=== PATIENT | female | born 2000 | race Caucasian/White ===

== ENCOUNTER 2021-03-26 09:34 | Emergency (ER) | payer SELFPAY ==
[2021-03-26 10:45] LABS: Urine Blood Trace-lysed (Negative); Urine Glucose Negative (Negative); Urine Protein Trace (Negative); Urine Specific Gravity 1.025 (1.005-1.030)
[2021-03-26 10:50] LABS: Absolute Lymphocytes (CBC) 1.5 K/uL (0.7-4.9); Basophils % 0.5 % (0-1.3); Hematocrit 35.1 % (36.0-45.0); Lymphocytes % 24.9 % (15.3-44.8); MPV 8.4 fL (7.6-11.3); RBC Red Blood Cell Count 4.26 M/uL (3.86-4.86)
[2021-03-26] MEDS ORDERED: ONDANSETRON 4 MG/2 ML VIAL ONE (11:04)
[2021-03-26] MEDS ORDERED: PANTOPRAZOLE 40 MG INJ ONE (11:04)
[2021-03-26] MEDS ORDERED: NA CHLORIDE 0.9% 1,000 ML ONE (11:05)
[2021-03-26] MEDS ORDERED: WATER FOR INJ,STERILE 10 ML ONE (11:05)
[2021-03-26 11:11] LABS: ALT/SGPT 27 U/L (12-78); AST/SGOT 16 U/L (15-37); Alkaline Phosphatase 75 U/L (45-117); BUN Blood Urea Nitrogen 18 mg/dL (7-18); Bicarbonate 29 mmol/L (21-32); Bilirubin Direct 0.1 mg/dL (0-0.2); Bilirubin Total 0.6 mg/dL (0.2-1.0); Glucose Level 84 mg/dL (74-106); Lipase 28 U/L (73-393); Potassium 3.8 mmol/L (3.5-5.1); Protein, Total 7.5 g/dL (6.4-8.2); Sodium Level 142 mmol/L (136-145)
--- NOTE | 2021-03-26 11:46 | RAD REPORT ---
EXAM DESCRIPTION: CT - Abdomen Pelvis W Contrast - 03/26/2021 11:13 am CLINICAL HISTORY: EPIGASTRIC PAIN COMPARISON: CT ABD PELVIS W CONTRAST dated 05/11/2009 TECHNIQUE: Biphasic, helical CT imaging of the abdomen and pelvis was performed following 100 ml non -ionic IV contrast. No oral contrast was administered. All CT scans are performed using dose optimization technique as appropriate and may include automated exposure control or mA/KV adjustment according to patient size. FINDINGS: No suspicious findings in the lung bases. The liver, pancreas, gallbladder, and biliary tree show no suspicious findings. Spleen is normal size . There are multiple rounded low-density areas scattered throughout the splenic parenchyma up to 13 m m in size. These persist on both arterial and venous phase imaging. The 2008 study is not adequate fo r a definitive comparison. Splenic lesions are nonspecific. These may be areas perfusion differential that can exist in the spleen. Aggressive splenic process is doubtful given the absence of additional significant findings on this study. Delete select Symmetric renal function is seen with no hydronephrosis or suspicious renal mass. No pyelonephritis o r acute parenchymal process. No bladder abnormalities. No adrenal abnormalities. Uterus and ovaries s how no suspicious findings. No dilated bowel loops or bowel wall thickening. Appendectomy clips present. No active GI process alicia ntifiable. No free air, free fluid or inflammatory stranding. No hernia, mass or bulky lymphadenopat hy. No suspicious bony findings. IMPRESSION: Contrast enhanced CT abdomen and pelvis showing no acute or emergent finding. Multiple small low-density areas in a normal size spleen are present and nonspecific. Given the absen ce of any other significant finding, these are likely of no long-term clinical significance. As clinical findings warrant or patient concerns warrant, follow-up ultrasound of the spleen could be performed in 6 months.
--- NOTE | 2021-03-26 12:08 | EDPHYS ---
Physician Documentation [facility] Name: Jacky Lopez Age: 21 yrs Sex: Female : 2000 Arrival Date: 03/26/2021 Time: 09:37 Bed 13 Private MD: ALFONZO Physician Keaton Alvarez HPI: 03/26 10:20 This 21 yrs old Female presents to ER via Ambulatory with complaints of cp Vomiting - blood. 10:20 The patient presents to the emergency department with nausea, that is moderate, cp vomiting, that is intermittent, abdominal pain, of the epigastric area, described as waxing and waning, and does not radiate. Onset: The symptoms/episode began/occurred 1 week(s) ago. Possible causes: unknown. The symptoms are aggravated by food . Associated signs and symptoms: Pertinent positives: anorexia, constipation, dizziness, Pertinent negatives: diarrhea, dysuria, fever. Severity of symptoms: in the emergency department the symptoms are unchanged despite home interventions. Patient reports noticing possible blood in vomitus this morning. Patient reports episodes of vomiting and epigastric pain after eating and drinking times 1 week. 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 - Social history:: Smoking status: Patient reports the use of cigarette tobacco products, Reported history of juuling and/or vaping. ROS: 10:25 Eyes: Negative for injury, pain, redness, and discharge. cp 10:25 Constitutional: Positive for poor PO intake, Negative for body aches, chills, fever, weight loss. 10:25 ENT: Negative for ear pain, sore throat, difficulty swallowing, difficulty handling secretions. 10:25 Cardiovascular: Negative for chest pain, palpitations. 10:25 Respiratory: Negative for cough, shortness of breath, wheezing. 10:25 Abdomen/GI: Positive for abdominal pain, nausea and vomiting, anorexia, Negative for diarrhea, constipation, black/tarry stool, rectal bleeding. 10:25 Back: Negative for pain at rest, pain with movement. 10:25 : Negative for urinary symptoms. 10:25 Neuro: Negative for altered mental status, headache, weakness. 10:25 All other systems are negative. Exam: 10:30 Constitutional: The patient appears in no acute distress, alert, awake, non-toxic, well cp developed, well nourished. 10:30 Head/Face: Normocephalic, atraumatic. cp 10:30 Eyes: Periorbital structures: appear normal, Conjunctiva: normal, no exudate, no injection, Sclera: no appreciated abnormality, Lids and lashes: appear normal, bilaterally. 10:30 ENT: External ear(s): are unremarkable, Nose: is normal, Mouth: Lips: moist, Oral mucosa: moist, Posterior pharynx: Airway: no evidence of obstruction, patent. 10:30 Neck: ROM/movement: is normal, is supple, without pain, no range of motions limitations. 10:30 Chest/axilla: Inspection: normal, Palpation: is normal, no crepitus, no tenderness. 10:30 Cardiovascular: Rate: bradycardic, Rhythm: regular. 10:30 Respiratory: the patient does not display signs of respiratory distress, Respirations: normal, no use of accessory muscles, no retractions, labored breathing, is not present, Breath sounds: are clear throughout, no decreased breath sounds, no stridor, no wheezing. 10:30 Abdomen/GI: Inspection: abdomen appears normal, Bowel sounds: active, all quadrants, Palpation: soft, in all quadrants, moderate abdominal tenderness, in the epigastric area, rebound tenderness, is not appreciated, voluntary guarding, is elicited in the epigastric area. 10:30 Back: pain, is absent, ROM is normal. Vital Signs: 09:52 BP 109 / 64; Pulse 56; Resp 16; Temp 97.4; Pulse Ox 100% on R/A; Weight 78.93 kg; iw Height 5 ft. 0 in. (152.40 cm); 11:00 BP 95 / 45; Pulse 57; Resp 16 S; Pulse Ox 100% on R/A; ca1 12:00 BP 92 / 53; Pulse 58; Resp 18 S; Pulse Ox 100% on R/A; ca1 13:00 BP 94 / 57; Pulse 61; Resp 18 S; Pulse Ox 100% on R/A; ca1 09:52 Body Mass Index 33.98 (78.93 kg, 152.40 cm) iw MDM: 10:10 Patient medically screened. tacho 10:30 Differential diagnosis: Nonspecific abd pain, gastritis, cholecystitis, pancreatitis, cp gastroenteritis, PUD. 12:06 Data reviewed: vital signs, nurses notes, lab test result(s), radiologic studies, CT cp scan. 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 Response to treatment: the patient's symptoms have markedly improved after treatment, VSS. Pain and nausea improved. Patient observed tolerating po fluids. Will discharge to home for continued monitoring. 03/26 10:17 Order name: Basic Metabolic Panel; Complete Time: 11:43 03/26 11:43 Interpretation: Normal except: CL 108. 03/26 10:17 Order name: CBC with Diff; Complete Time: 11:43 03/26 11:43 Interpretation: Normal except: HGB 11.5; HCT 35.1. 03/26 10:17 Order name: Hepatic Function; Complete Time: 11:43 03/26 10:17 Order name: Lipase; Complete Time: 11:43 03/26 10:45 Order name: Urine Dipstick-Ancillary; Complete Time: 11:43 EDLA 03/26 11:51 Interpretation: Normal except: UKET 2+; UBLD Trace-lysed; UPROT Trace. 03/26 10:47 Order name: Urine --Ancillary (enter results) eb 03/26 10:17 Order name: IV Saline Lock; Complete Time: 10:54 cp 03/26 10:29 Order name: CT Abd/Pelvis - IV Contrast Only; Complete Time: 11:48 cp 03/26 11:09 Order name: CREATININE WHOLE BLOOD; Complete Time: 11:43 EDMS 03/26 10:17 Order name: Labs collected and sent; Complete Time: 10:54 cp 03/26 10:17 Order name: NPO; Complete Time: 10:53 cp 03/26 11:49 Order name: PO challenge; Complete Time: 12:24 cp Administered Medications: 10:42 Drug: NS 0.9% 1000 ml Route: IV; Rate: 1000 ml; Site: left forearm; ca1 12:00 Follow up: Response: No adverse reaction; IV Status: Completed infusion; IV Intake: ca1 1000ml 10:44 Drug: ProTONIX (pantoprazole) 40 mg Route: IVP; Site: left antecubital; ca1 12:00 Follow up: Response: No adverse reaction ca1 10:46 Drug: Zofran (Ondansetron) 4 mg Route: IVP; Site: left antecubital; ca1 12:00 Follow up: Response: No adverse reaction ca1 Disposition: 03/26/21 12:07 Discharged to Home. Impression: Epigastric pain, Nausea and vomiting. - Condition is Stable. - Discharge Instructions: Gastroesophageal Reflux Disease, Adult, Peptic Ulcer, Food Choices for Peptic Ulcer Disease. - Prescriptions for Protonix 40 mg Oral Tablet - take 1 tablet by ORAL route once daily; 30 tablet. Zofran 4 mg Oral Tablet - take 1 tablet by ORAL route every 12 hours As needed; 20 tablet. - Medication Reconciliation Form, Thank You Letter, Antibiotic Education, Prescription Opioid Use, Work release form form. - Follow up: Rciardo Lua MD; When: 2 - 3 days; Reason: Worsening of condition. - Problem is new. - Symptoms have improved. Signatures: Dispatcher [employer] EDKeaton Hirsch MD MD cha Williams, Irene, RN RN iw Page, Corey, PA PA cp Acob, Cheryl, RN RN ca1 Corrections: (The following items were deleted from the chart) 10:33 10:18 Abdomen Limited+[id number] ordered. [facility] EDLA 13:01 12:07 03/26/2021 12:07 Discharged to Home. Impression: Epigastric pain; Nausea and ca1 vomiting. Condition is Stable. Forms are Medication Reconciliation Form, Thank You Letter, Antibiotic Education, Prescription Opioid Use. Follow up: Ricardo Lua; When: 2 - 3 days; Reason: Worsening of condition. Problem is new. Symptoms have improved. cp
--- NOTE | 2021-03-26 12:08 | ER ---
Nurse's Notes [facility] Name: Jacky Lopez Age: 21 yrs Sex: Female : 2000 Arrival Date: 03/26/2021 Time: 09:37 Bed 13 Private MD: Diagnosis: Epigastric pain;Nausea and vomiting Presentation: 03/26 09:52 Chief complaint: Patient states: over past week has been dizzy and nauseous, vomits iw after she eats, not having a BM as frequently, this morning her vomit was red and yellow , no fever. Coronavirus screen: Client presents with at least one sign or symptom that may indicate coronavirus-19. Ebola Screen: Patient negative for fever greater than or equal to 101.5 degrees Fahrenheit, and additional compatible Ebola Virus Disease symptoms Patient denies exposure to infectious person. Patient denies travel to an Ebola-affected area in the 21 days before illness onset. No symptoms or risks identified at this time. Initial Sepsis Screen: Does the patient meet any 2 criteria? No. Patient's initial sepsis screen is negative. Does the patient have a suspected source of infection? No. Patient's initial sepsis screen is negative. Risk Assessment: Do you want to hurt yourself or someone else? Patient reports no desire to harm self or others. Onset of symptoms was March 19, 2021. 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 - Social history:: Smoking status: Patient reports the use of cigarette tobacco products, Reported history of juuling and/or vaping. Screenin:10 Abuse screen: Denies threats or abuse. Denies injuries from another. Nutritional ca1 screening: No deficits noted. Tuberculosis screening: No symptoms or risk factors identified. Fall Risk IV access (20 points). Assessment: 10:10 General: Appears in no apparent distress. comfortable, Behavior is calm, cooperative, ca1 appropriate for age. Pain: Denies pain. Neuro: Level of Consciousness is awake, alert, obeys commands, Oriented to person, place, time, situation, Appropriate for age. Cardiovascular: Heart tones S1 S2 present Capillary refill < 3 seconds Patient's skin is warm and dry. Rhythm is regular. Respiratory: Airway is patent Respiratory effort is even, unlabored, Respiratory pattern is regular, symmetrical, Breath sounds are clear bilaterally. GI: Abdomen is round non-distended, Bowel sounds present X 4 quads. Abd is soft and non tender X 4 quads. 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 : No signs and/or symptoms were reported regarding the genitourinary system. EENT: No signs and/or symptoms were reported regarding the EENT system. Derm: Skin is intact, is healthy with good turgor, Skin is pink, warm \T\ dry. Musculoskeletal: Circulation, motion, and sensation intact. Capillary refill < 3 seconds. 11:15 Reassessment: Patient appears in no apparent distress at this time. Patient and/or ca1 family updated on plan of care and expected duration. Pain level reassessed. Patient is alert, oriented x 3, equal unlabored respirations, skin warm/dry/pink. 12:00 Reassessment: Patient appears in no apparent distress at this time. Patient and/or ca1 family updated on plan of care and expected duration. Pain level reassessed. Patient is alert, oriented x 3, equal unlabored respirations, skin warm/dry/pink. 12:58 Reassessment: Patient appears in no apparent distress at this time. Patient and/or ca1 family updated on plan of care and expected duration. Pain level reassessed. Patient is alert, oriented x 3, equal unlabored respirations, skin warm/dry/pink. Patient states feeling better. General: Appears. Vital Signs: 09:52 BP 109 / 64; Pulse 56; Resp 16; Temp 97.4; Pulse Ox 100% on R/A; Weight 78.93 kg; iw Height 5 ft. 0 in. (152.40 cm); 11:00 BP 95 / 45; Pulse 57; Resp 16 S; Pulse Ox 100% on R/A; ca1 12:00 BP 92 / 53; Pulse 58; Resp 18 S; Pulse Ox 100% on R/A; ca1 13:00 BP 94 / 57; Pulse 61; Resp 18 S; Pulse Ox 100% on R/A; ca1 09:52 Body Mass Index 33.98 (78.93 kg, 152.40 cm) iw ED Course: 09:37 Patient arrived in ED. as 09:54 Triage completed. iw 09:56 Arm band placed on. iw 10:05 Keaton Ramirez PA is PHCP. cp 10:05 Keaton Alvarez MD is Attending Physician. cp 10:08 Vernell Soto, STANTON is Primary Nurse. ca1 10:10 Patient has correct armband on for positive identification. Placed in gown. Bed in low ca1 position. Call light in reach. Side rails up X2. Pulse ox on. NIBP on. Warm blanket given. 10:40 Initial lab(s) drawn, by me, sent to lab. Inserted saline lock: 22 gauge in left ca1 forearm, using aseptic technique. Blood collected. 11:13 CT Abd/Pelvis - IV Contrast Only In Process Unspecified. EDMS 12:07 Ricardo Lua MD is Referral Physician. cp 13:00 No provider procedures requiring assistance completed. IV discontinued, intact, ca1 bleeding controlled, No redness/swelling at site. Pressure dressing applied. Administered Medications: 10:42 Drug: NS 0.9% 1000 ml Route: IV; Rate: 1000 ml; Site: left forearm; ca1 12:00 Follow up: Response: No adverse reaction; IV Status: Completed infusion; IV Intake: ca1 1000ml 10:44 Drug: ProTONIX (pantoprazole) 40 mg Route: IVP; Site: left antecubital; ca1 12:00 Follow up: Response: No adverse reaction ca1 10:46 Drug: Zofran (Ondansetron) 4 mg Route: IVP; Site: left antecubital; ca1 12:00 Follow up: Response: No adverse reaction ca1 Intake: 12:00 IV: 1000ml; Total: 1000ml. ca1 Outcome: 12:07 Discharge ordered by . cp 13:00 Discharged to home ambulatory, with friend. ca1 13:00 Condition: stable 13:00 Discharge instructions given to patient, Instructed on discharge instructions, follow up and referral plans. medication usage, Demonstrated understanding of instructions, follow-up care, medications, Prescriptions given X 2. 13:01 Patient left the ED. ca1 Signatures: Dispatcher [employer] Ina Dobbins Irene, RN RN iw Keaton Ramirez PA PA cp Acob, Cheryl RN RN ca1
[2021-03-26 13:19] VITALS: TEMP 97.4; O2SAT 100
[2021-03-26 13:24] VITALS: BP 94/57
== END 2021-03-26 13:01 | disposition home or self-care (01) ==
LOC: ER 09:34
DX: R10.13 Epigastric pain (principal); F41.8 Other specified anxiety disorders; F17.210 Nicotine dependence, cigarettes, uncomplicated
CPT/HCPCS: 36415; 74177; 80048; 80076; 81003; 82565; 83690; 85025; 96361; 96374; 96375; 99284; C9113; J2405; J7030; Q9967

== ENCOUNTER 2022-03-04 21:42 | Emergency (ER) | payer SELFPAY ==
[2022-03-04] MEDS ORDERED: PROMETHAZINE INJ 25 MG/ML AMP ONE (22:37)
[2022-03-04 22:53] LABS: Urine Blood Trace-intact (Negative); Urine Glucose Negative (Negative); Urine Protein Negative (Negative); Urine Specific Gravity >=1.030 (1.005-1.030); Urine pH 5.5 (5.0-7.0)
[2022-03-04 22:55] LABS: Absolute Lymphocytes (CBC) 1.5 K/uL (0.7-4.9); Hematocrit 33.8 % (36.0-45.0); Lymphocytes % 30.5 % (15.3-44.8); MPV 8.3 fL (7.6-11.3); RBC Red Blood Cell Count 4.17 M/uL (3.86-4.86)
[2022-03-04 23:25] LABS: Urine Bacteria 20-50 /HPF (<20); Urine Mucus 1+ /HPF (NONE SEEN); Urine RBC <5 /HPF (NONE SEEN)
[2022-03-05 00:16] LABS: Albumin 3.5 g/dL (3.4-5.0); Bilirubin Total 0.3 mg/dL (0.2-1.0); Potassium 3.6 mmol/L (3.5-5.1); Protein, Total 7.3 g/dL (6.4-8.2)
--- NOTE | 2022-03-05 01:57 | EDPHYS ---
Physician Documentation [facility] Name: Jacky Lopez Age: 21 yrs Sex: Female : 2000 Arrival Date: 03/04/2022 Time: 21:43 Bed 20 Private MD: ED Physician Chivo Cleveland HPI: 03/05 01:56 This 21 yrs old Female presents to ER via Ambulatory with complaints of Nausea/Vomiting.ms3 01:56 The patient presents to the emergency department with nausea, vomiting. Onset: The ms3 symptoms/episode began/occurred 2 week(s) ago. Possible causes: unknown. The symptoms are aggravated by nothing. The symptoms are alleviated by nothing. Associated signs and symptoms: Pertinent positives: abdominal pain, vomiting, Pertinent negatives: fever. Severity of symptoms: At their worst the symptoms were mild in the emergency department the symptoms are unchanged. 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 - Social history:: Smoking status: unknown. ROS: 03/05 01:56 Constitutional: Negative for fever, and chills. Neck: Negative for injury, pain, and ms3 swelling, Cardiovascular: Negative for chest pain, and palpitations. Respiratory: Negative for shortness of breath, cough, wheezing, and pleuritic chest pain. MS/Extremity: Negative for injury and deformity, Skin: Negative for injury, rash, and discoloration. Abdomen/GI: Positive for abdominal pain, nausea and vomiting. All other systems are negative. Exam: 01:56 Constitutional: This is a well developed, well nourished patient who is awake, alert, ms3 and in no acute distress. Eyes: Pupils equal round and reactive to light, extra-ocular motions intact. Lids and lashes normal. Conjunctiva and sclera are non-icteric and not injected. Periorbital areas with no swelling, redness, or edema. Neck: Trachea midline, no cervical lymphadenopathy. Supple, full range of motion without nuchal rigidity, or vertebral point tenderness. No Meningismus. Chest/axilla: Normal chest wall appearance and motion. Nontender with no deformity. Cardiovascular: Regular rate and rhythm with a normal S1 and S2. No gallops, murmurs, or rubs. Normal PMI, no JVD. No pulse deficits. Respiratory: Lungs have equal breath sounds bilaterally, clear to auscultation and percussion. No rales, rhonchi or wheezes noted. No increased work of breathing, no retractions or nasal flaring. Abdomen/GI: Soft, non-tender, with normal bowel sounds. No distension or tympany. No guarding or rebound. No evidence of tenderness throughout. Back: No spinal tenderness. No costovertebral tenderness. Full range of motion. Skin: Warm, dry with normal turgor. Normal color with no rashes, no lesions, and no evidence of cellulitis. MS/ Extremity: Pulses equal, no cyanosis. Neurovascular intact. Full, normal range of motion. Psych: Awake, alert, with orientation to person, place and time. Behavior, mood, and affect are within normal limits. Vital Signs: 00:16 BP 100 / 70; Pulse 68; Resp 16; Temp 99.0(O); Pulse Ox 100% ; Weight 76.66 kg; Height 5 ag7 ft. (152.40 cm); Pain 5/10; 00:16 Body Mass Index 33.01 (76.66 kg, 152.40 cm) ag7 MDM: 03/04 22:21 Patient medically screened. ms3 03/05 01:56 Differential diagnosis: Nonspecific abd pain, gastritis, pancreatitis, viral ms3 gastroenteritis, gastroenteritis. Data reviewed: vital signs, nurses notes, lab test result(s), and as a result, I will discharge patient. Counseling: I had a detailed discussion with the patient and/or guardian regarding: the historical points, exam findings, and any diagnostic results supporting the discharge/admit diagnosis, lab results, to return to the emergency department if symptoms worsen or persist or if there are any questions or concerns that arise at home. ED course: Discussed labs, physical exam findings with patient. Patient to follow-up with primary care physician in 2 to 3 days. Patient understands and agrees with plan. All questions were answered. Return precautions discussed include worsening symptoms, or any other concerns. On reevaluation patient is alert and oriented x4, in no apparent distress, nontoxic-appearing, speaking full sentences, ambulatory in emergency department.. 03/04 22:00 Order name: CBC with Diff; Complete Time: 23:46 ms3 03/04 22:00 Order name: CMP; Complete Time: 00:56 ms3 03/04 22:00 Order name: Lipase; Complete Time: 00:56 ms3 03/04 22:00 Order name: Urine Microscopic Only; Complete Time: 23:46 ms3 03/04 22:53 Order name: Urine Dipstick-Ancillary; Complete Time: 23:46 EDMS 03/04 22:00 Order name: IV Saline Lock; Complete Time: 23:55 ms3 03/04 22:00 Order name: Labs collected and sent; Complete Time: 22:45 ms3 03/04 22:00 Order name: Urine Dipstick-Ancillary (obtain specimen); Complete Time: 22:54 ms3 03/04 22:00 Order name: Urine Test (obtain specimen); Complete Time: 22:54 ms3 03/04 23:27 Order name: Urine Culture EDMS 03/05 01:49 Order name: Urine --Ancillary (enter results) bb Administered Medications: 03/04 22:45 Drug: Phenergan (promethazine) 25 mg Route: IM; Site: Ventrogluteal RIGHT; ag7 23:15 Follow up: Response: No adverse reaction ag7 Disposition Summary: 03/05/22 01:56 Discharge Ordered Location: Home ms3 Condition: Stable ms3 Diagnosis - Nausea with vomiting, unspecified ms3 - Abdominal pain, Generalized ms3 Followup: ms3 - With: Guero Lutz DO - When: 2 - 3 days - Reason: Re-evaluation by your physician Discharge Instructions: - Discharge Summary Sheet ms3 - Abdominal Pain, Adult ms3 - Nausea and Vomiting, Adult ms3 Forms: - Medication Reconciliation Form ms3 - Thank You Letter ms3 - Antibiotic Education ms3 - Prescription Opioid Use ms3 Signatures: Dispatcher [employer] EDMS Chivo Cleveland DO DO ms3 Juliet Salazar RN RN kd3 Maggi Ann PA PA sb3 Soni Beverly RN RN ag7
--- NOTE | 2022-03-05 01:57 | ER ---
Nurse's Notes [facility] Name: Jacky Lopez Age: 21 yrs Sex: Female : 2000 Arrival Date: 03/04/2022 Time: 21:43 Bed 20 Private MD: Diagnosis: Nausea with vomiting, unspecified;Abdominal pain, Generalized Presentation: 03/04 21:51 Chief complaint: Patient states: I have been having nausea and vomiting for the past kd3 couple of weeks. I thought maybe I was so I took a test and it was negative. i also have esophageal reflux disease and my vomit has been red so i am worried that there is blood in it. Coronavirus screen: Vaccine status: Patient reports receiving the 1st dose of the Covid vaccine. Date December 2021. Ebola Screen: No symptoms or risks identified at this time. Initial Sepsis Screen: Does the patient meet any 2 criteria? No. Patient's initial sepsis screen is negative. Does the patient have a suspected source of infection? No. Patient's initial sepsis screen is negative. Risk Assessment: Do you want to hurt yourself or someone else? Patient reports no desire to harm self or others. Onset of symptoms was February 20, 2022. 21:51 Method Of Arrival: Ambulatory kd3 21:51 Acuity: GENE 3 kd3 Triage Assessment: 21:54 General: Appears in no apparent distress. Behavior is calm, cooperative. Pain: Denies kd3 pain. GI: Reports vomiting. 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 - Social history:: Smoking status: unknown. Screenin/05 00:12 Abuse screen: Denies threats or abuse. Nutritional screening: No deficits noted. ag7 Tuberculosis screening: No symptoms or risk factors identified. Fall Risk None identified. Assessment: 03/04 23:15 General: Appears in no apparent distress. Behavior is calm, cooperative, appropriate ag7 for age. Pain: Complains of pain in abdomen Pain currently is 7 out of 10 on a pain scale. Quality of pain is described as aching, crampy, Pain began suddenly, Is continuous, Alleviated by nothing. Neuro: Level of Consciousness is awake, alert, obeys commands, Oriented to Appropriate for age. Cardiovascular: Patient's skin is warm and dry. Respiratory: Airway is patent Trachea midline Respiratory effort is even, unlabored, Respiratory pattern is regular, symmetrical. GI: Abdomen is round non-distended, Last BM was March 04, 2022. Reports epigastric pain, nausea, vomiting. 03/05 00:15 Reassessment: No changes from previously documented assessment. ag7 01:00 Reassessment: Patient and/or family updated on plan of care and expected duration. Pain ag7 level reassessed. Patient is alert, oriented x 3, equal unlabored respirations, skin warm/dry/pink. Patient states feeling better. Patient states symptoms have improved. 02:00 Reassessment: Patient and/or family updated on plan of care and expected duration. Pain ag7 level reassessed. Patient is alert, oriented x 3, equal unlabored respirations, skin warm/dry/pink. Patient denies pain at this time. Patient states feeling better. Patient states symptoms have improved. Vital Signs: 00:16 BP 100 / 70; Pulse 68; Resp 16; Temp 99.0(O); Pulse Ox 100% ; Weight 76.66 kg; Height 5 ag7 ft. (152.40 cm); Pain 5/10; 00:16 Body Mass Index 33.01 (76.66 kg, 152.40 cm) ag7 ED Course: 03/04 21:43 Patient arrived in ED. jj6 21:51 Chivo Cleveland DO is Attending Physician. ms3 21:54 Triage completed. kd3 21:54 Arm band placed on right wrist. kd3 22:06 Soni Beverly, RN is Primary Nurse. ag7 22:45 Lipase Sent. ag7 22:45 CMP Sent. ag7 22:45 CBC with Diff Sent. ag7 23:54 Lab(s) recollected, by me, sent to lab. Inserted saline lock: 22 gauge in right wrist, jw7 using aseptic technique. Blood collected. 23:55 Warm blanket given. jw7 23:55 CMP Sent. jw7 23:55 Lipase Sent. jw7 03/05 00:13 Patient has correct armband on for positive identification. Bed in low position. Call ag7 light in reach. Side rails up X 1. Adult w/ patient. 01:55 Guero Lutz DO is Referral Physician. ms3 02:13 No provider procedures requiring assistance completed. IV discontinued, intact, ag7 bleeding controlled, No redness/swelling at site. Pressure dressing applied. Administered Medications: 03/04 22:45 Drug: Phenergan (promethazine) 25 mg Route: IM; Site: Ventrogluteal RIGHT; ag7 23:15 Follow up: Response: No adverse reaction ag7 Medication: 03/05 00:13 VIS not applicable for this client. ag7 Outcome: 01:56 Discharge ordered by . ms3 02:14 Discharged to home ambulatory. ag7 02:14 Condition: stable 02:14 Discharge instructions given to patient, Instructed on discharge instructions, follow up and referral plans. Demonstrated understanding of instructions, follow-up care. 02:14 Patient left the ED. ag7 Signatures: Chivo Cleveland DO DO ms3 Ilene Lovell jj6 Juliet Salazar, RN RN kd3 Berenice Hernández jw7 Soni Bveerly, RN RN ag7
[2022-03-05 02:22] VITALS: BP 100/70; TEMP 99; O2SAT 100
== END 2022-03-05 02:14 | disposition home or self-care (01) ==
LOC: ER 21:42
DX: R11.2 Nausea with vomiting, unspecified (principal); R10.84 Generalized abdominal pain; Z91.040 Latex allergy status; F41.8 Other specified anxiety disorders
CPT/HCPCS: 36415; 80053; 81003; 81015; 81025; 83690; 85025; 87086; 87088; 96372; 99283; J2550

== ENCOUNTER 2022-11-29 08:34 | Emergency (ER) | payer SELFPAY ==
--- OUTSIDE RECORDS SUMMARY | 2022-11-29 08:39 | XMS REPORT | Continuity of Care Document ---
:2000 Author Organization [facility] t Address [address] [facility]. [address] [place] [address] Care Team Providers Name Role Phone Unavailable Unavailable Unavailable Problems This patient has no known problems. Allergies, Adverse Reactions, Alerts This patient has no known allergies or adverse reactions. Medications This patient has no known medications. Procedures This patient has no known procedures. Results Test Description Test Time Test Comments Results Result Comments Source H. PYLORI (BREATH) 2022-03-25 12:46:36 Test Item Value Reference Range Interpretation Comme nts H. PYLORI (BREATH) (test code NEGATIVE NEGATIVE UNLESS OTHERWISE INDICATED, ALL = 57711) TESTING PERFORM ED ATCLINICAL PATHOLOGY [employer] [address] [place] [id number] FLIGHT ATTENDANT RAMP: LOPEZ LEMONS M.D. CLIA NUMBER [id number] CAP ACCREDITATION N O. [id number]
[2022-11-29] MEDS ORDERED: KETOROLAC 30 MG/ML INJ ONE (08:57)
--- NOTE | 2022-11-29 08:58 | EDPHYS ---
Physician Documentation [facility] Name: Jacky Lopez Age: 22 yrs Sex: Female : 2000 Arrival Date: 11/29/2022 Time: 08:38 Bed IW2 Private MD: ED Physician Keaton Alvarez HPI: 11/29 08:48 This 22 yrs old Female presents to ER via Ambulatory with complaints of kb Toothache, Migraine. 08:48 The patient presents with broken tooth/teeth, pain, redness, swelling. The problem is kb located in the lower right first molar (#30). Onset: The symptoms/episode began/occurred 2 day(s) ago. Duration: The symptoms are continuous. Modifying factors: The symptoms are alleviated by nothing, the symptoms are aggravated by nothing. Associated signs and symptoms: Pertinent positives: pain, redness in area, swelling. Severity of symptoms: At their worst the symptoms were moderate, in the emergency department the symptoms are unchanged. The patient has not experienced similar symptoms in the past. The patient has not recently seen a physician. 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 - Social history:: Smoking status: Reported history of juuling and/or vaping. ROS: 08:47 Constitutional: Negative for fever, chills, and weight loss. kb 08:47 ENT: Positive for Teeth pain 08:47 Neuro: Positive for headache. 08:47 All other systems are negative. Exam: 08:47 Constitutional: This is a well developed, well nourished patient who is awake, alert, kb and in no acute distress. Head/Face: Normocephalic, atraumatic. Eyes: Pupils equal round and reactive to light, extra-ocular motions intact. Lids and lashes normal. Conjunctiva and sclera are non-icteric and not injected. Cornea within normal limits. Periorbital areas with no swelling, redness, or edema. Cardiovascular: Regular rate and rhythm with a normal S1 and S2. No gallops, murmurs, or rubs. No pulse deficits. Respiratory: Respirations even and unlabored. No increased work of breathing. Talking in full sentences Abdomen/GI: Soft, non-tender. No distention Skin: Warm, dry with normal turgor. Normal color. MS/ Extremity: Pulses equal, no cyanosis. Neurovascular intact. Full, normal range of motion. Neuro: Awake and alert, GCS 15, oriented to person, place, time, and situation. Moves all extremities. Normal gait. Psych: Awake, alert, with orientation to person, place and time. Behavior, mood, and affect are within normal limits. 08:47 ENT: Dental exam: fractured teeth are noted, specifically the lower right first molar (#30), gum swelling, that is mild, specifically in the lower right first molar (#30), pain. Vital Signs: 08:45 BP 110 / 86; Pulse 61; Resp 16; Temp 97.9; Pulse Ox 98% ; Weight 75.3 kg; Height 5 ft. jh5 0 in. (152.40 cm); Pain 7/10; 08:45 Body Mass Index 32.42 (75.30 kg, 152.40 cm) [facility] MDM: 08:41 Patient medically screened. kb 08:48 Differential diagnosis: dental caries, dental abscess. Data reviewed: vital signs, kb nurses notes. Counseling: I had a detailed discussion with the patient and/or guardian regarding: the historical points, exam findings, and any diagnostic results supporting the discharge/admit diagnosis, the need for outpatient follow up, a dentist, to return to the emergency department if symptoms worsen or persist or if there are any questions or concerns that arise at home. 08:50 ED course: Patient is a 22-year-old female who reports she broke her tooth a year ago kb and has had intermittent pain since then. Reports this pain started 2 days ago with an associated migraine. Reports swelling to the gums that is new this time. On exam patient has a fractured tooth #30 with surrounding gum swelling and mild erythema. Patient educated on need for antibiotics and follow-up with dentist. Patient reports she does not have insurance to see a dentist. Educated on dental schools in the surrounding area verbal understanding received.. . 09:46 Care significantly affected by the following Social Determinants of Health: Poor access kb to healthcare and/or lack of insurance. Administered Medications: 08:53 Drug: Ketorolac 30 mg Route: IM; Site: right deltoid; 5 Disposition Summary: 03/01/23 08:58 Discharge Ordered Location: Home kb Condition: Stable kb Diagnosis - Other specified disorders of teeth and supporting structures kb - Migraine without aura, not intractable kb Followup: kb - With: Emergency Department - When: As needed - Reason: Worsening of condition Followup: kb - With: Private Physician - When: 2 - 3 days - Reason: Recheck today's complaints, Continuance of care, Re-evaluation by your physician Discharge Instructions: - Discharge Summary Sheet kb - Dental Pain, [id number] kb - Migraine Headache, [id number] kb - Dental Abscess, [id number] kb Forms: - Medication Reconciliation Form kb - Thank You Letter kb - Antibiotic Education kb - Prescription Opioid Use kb Prescriptions: - Augmentin 875-125 mg Oral Tablet - take 1 tablet by ORAL route every 12 hours for 10 days; 20 tablet; Refills: 0, kb Product Selection Permitted - Diclofenac Sodium 75 mg Oral tablet,delayed release (DR/EC) - take 1 tablet by ORAL route 2 times per day As needed; 30 tablet; Refills: 0, kb Product Selection Permitted Signatures: Rachel Kitchen, VALLEZ FILTER OPERATOR-C VALLEZ FILTER OPERATOR-Yolanda Rodriguez, RN RN jh5
--- NOTE | 2022-11-29 08:58 | ER ---
Nurse's Notes [facility] Name: Jacky Lopez Age: 22 yrs Sex: Female : 2000 Arrival Date: 11/29/2022 Time: 08:38 Bed IW2 Private MD: Diagnosis: Other specified disorders of teeth and supporting structures;Migraine without aura, not intractable Presentation: 11/29 08:45 Chief complaint: Patient states: migraine x2 days; tooth pain since yesterday. Been [facility] going on for a year, it comes and goes where my teeth get swollen and painful from broken teeth i have. Coronavirus screen: Vaccine status: Patient reports receiving the 2nd dose of the covid vaccine. Client denies travel out of the [place] in the last 14 days. Ebola Screen: Patient negative for fever greater than or equal to 101.5 degrees Fahrenheit, and additional compatible Ebola Virus Disease symptoms Patient denies exposure to infectious person. Patient denies travel to an Ebola-affected area in the 21 days before illness onset. Initial Sepsis Screen: Does the patient meet any 2 criteria? No. Patient's initial sepsis screen is negative. Does the patient have a suspected source of infection? No. Patient's initial sepsis screen is negative. Risk Assessment: Do you want to hurt yourself or someone else? Patient reports no desire to harm self or others. 08:45 Method Of Arrival: Ambulatory [facility] 08:45 Acuity: GENE 3 5 Triage Assessment: 08:47 General: Appears in no apparent distress. uncomfortable, obese, Behavior is calm, 5 cooperative, appropriate for age. Pain: Complains of pain in teeth. EENT: Reports pain in right jaw. 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 - Social history:: Smoking status: Reported history of juuling and/or vaping. Vital Signs: 08:45 BP 110 / 86; Pulse 61; Resp 16; Temp 97.9; Pulse Ox 98% ; Weight 75.3 kg; Height 5 ft. [facility] 0 in. (152.40 cm); Pain 7/10; 08:45 Body Mass Index 32.42 (75.30 kg, 152.40 cm) [facility] ED Course: 08:38 Patient arrived in ED. rg4 08:40 Rachel Kitchen FNP-C [facility] kb 08:40 Keaton Alvarez MD is Attending Physician. kb 08:47 Triage completed. [facility] 08:47 Arm band placed on right wrist. 5 Administered Medications: 08:53 Drug: Ketorolac 30 mg Route: IM; Site: right deltoid; [facility] Outcome: 08:58 Discharge ordered by . kb 09:04 Discharged to home ambulatory. [facility] 09:04 Condition: good 09:04 Discharge instructions given to patient, Instructed on discharge instructions, follow up and referral plans. medication usage, safety practices, Demonstrated understanding of instructions, follow-up care, medications, Prescriptions given X 2. 09:04 Patient left the ED. [facility] Signatures: Rahcel Kitchen FNP-C FNP-Ckb Garcia, Rubi rg4 Yolanda Torres, RN RN [facility]
[2022-11-29 09:09] VITALS: BP 110/86; TEMP 97.9; O2SAT 98
== END 2022-11-29 09:04 | disposition home or self-care (01) ==
LOC: ER 08:34
DX: G43.009 Migraine without aura, not intractable, without status migrainosus (principal); K08.89 Other specified disorders of teeth and supporting structures

== ENCOUNTER 2024-06-15 11:38 | Emergency (ER) | payer SELFPAY ==
--- OUTSIDE RECORDS SUMMARY | 2024-06-15 11:41 | XMS REPORT | Continuity of Care Document ---
Author Name Unknown Address [address] [facility] [address] [place] [address] [facility] Address [address] [facility] [place] [address] Care Team Providers Care Gas Brazer Name Role Phone Pcp, Patient Does Not Have A Primary Care Physic cassia MARINE AVERY Attending Clinician Unavailable Marine Avery MD Attending Clinician [phone] Allergies, Adverse Reactions, Alerts Allergy Name Allergy Type Status Severity Reaction(s) Onset Date Inactive Date Treating Clinician Comments Source NO KNOWN ALLERGIE S Drug Class Active [facility] Social History Social Habit Start Date Stop Date Quantity Comments Source Sexual orientation U [facility] Sex Assigned At 2000 00:00:00 2000 00:00:00 [facility] Smoking Status Start Date Stop Date Source Tobacco smoking consumption unknown [facility] Medications Ordered Medication Name Filled Medication Name Start Date Stop Date Current Medication? Ordering Clinician Indication Dosage Frequency Signature (SIG) Comments Components Source ketorolac 10 mg tablet 12-05 00:00: 00 Yes [id number] 10mg Take 1 tablet by mouth every 6 (six) hours as needed for Pain (scale 1-3). [facility] Vital Signs Vital Name Observation Time Observation Value Comments Jd caesar Systolic blood pressure 2023-12-06 19:36:00 113 mm[Hg] [facility] Diastolic blood pressure 2023-12-06 19:36:00 85 mm[Hg] [facility] Heart rate 2023-12-06 19:36:00 103 /min [facility] Body temperature 2023-12-06 19:36:00 37.11 Susan [facility] Respiratory rate 2023-12-06 19:36:00 22 /min [facility] Body height 2023-12-06 19:36:00 152.4 cm [facility] Body weight 2023-12-06 19:36:00 83.598 kg [facility] BMI 2023-12-06 19:36:00 35.99 kg/m2 [facility] Oxygen saturation in Arterial blood by Pulse oximetry 2023-12-06 19:36:00 100 /min [place] [facility] Procedures Procedure Date / Time Performed Performing Clinicia n Source NOTICE OF PRIVACY PRACTICES 2023-12-06 20:07:51 Doctor Unassigned, [place] [facility] CONSENT/REFUSAL FOR DIAGNOSIS AND TREATMENT 2023-12-06 20:07:19 Doctor Unassigned, [place] [facility] ASSIGNMENT OF BENEFITS 2023-12-06 19:46:59 Docto r Unassigned, [place] [facility] NOTICE OF PRIVACY PRACTICES 2023-12-06 19:29:37 Doctor Unassigned, [place] [facility] NOTICE OF PRIVACY PRACTICES 2023-12-06 19:28:28 Doctor Unassigned, [place] [facility] Encounters Start Date/Time End Date/Time Encounter Type Admission Type Attending Clinicians Care Facility Care Department Encounter ID Source 2023-12-06 13:39:00 2023-12-06 14:15:00 Emergency X MARINE AVERY [facility] ERT [id number] [facility] 2023-12-06 13:39:00 2023-12-06 14:15:00 Emergency Marine Avery T [facility] [id number] [facility] Results Test Description Test Time Test Comments Results Result Co mments Source Notes Date/Time Note Provider Source 2023-12-06 13:53:07 Pt given printed and verbal discharge instructions regarding Lipoma, encouraged hydration, 1 Prescriptions provided Discussed ibuprofen and to take with food to avoid GI distress. Pt verbalized understanding of instructions, pt awake alert oriented, resp reg unlabored, skin w/d, color appropriate for race, moves all ext well,pt encouraged to follow up with pcp and or General Surgery Advised to seek medical attention for new/prolonged/worsening of symptoms, No adverse reaction to meds given in ER noted upon discharge Awake, alert oriented, resp reg unlabored, skin w/d, pt leaving amb with steady gait, in no apparent distress, [facility] 2023-12-06 13:36:08 Patient presents with a lump to the left posterior shoulder that is soft and a skin tag on the posterior right knee that has gotten larger. [facility] Gregoria Mauro RN [facility] 2023-12-06 13:26:00 Images from the original note were not included. [facility] Emergency Department Note Patient Name: Bernie Diaz Date of : 1990 33 year old female Treatment Room: Room/bed info not found Primary Care Physician: No primary care provider on file. Patient Escorted by: Family [5] Mode of Arrival: Personal means [1] EMS Treatment Prior to ED Arrival: Travel and Exposure Screening: Symptoms Does patient have any of these symptoms?: (not recorded) Exposure Screening Has patient had contact with someone with a communicable disease in the last month?: (not recorded) Diseases exposed to:: (not recorded) Is Patient ?: (not recorded) Exposure Date: (not recorded) Chief Complaint: No chief complaint on file. History of Present Illness: Pt here for right leg cyst and left shoulder cyst She has had the cyst in left shoulder for years She has had the cyst in the right leg for over a year They periodically cause pain No numbness no tingling no fever no chills Pain is when moved or bumped Rht right leg cyst gets pinched with clothing Left shoulder is pain when bumped Past Medical History/Immunizations: History reviewed. No pertinent past medical history. Allergies: Not on File Past Social History: Substance & Sexual Activity No substance use or sexual activity history on file. Past Surgical History: History reviewed. No pertinent surgical history. Review of Systems: Review of Systems Constitutional: Negative for chills and fatigue. Respiratory: Negative. Musculoskeletal: Positive for myalgias. All other systems reviewed and are negative. Physical Exam: ED Triage Vitals Weight Actual or estimated Height BP Pulse Resp Temp Temp src SpO2 Measured on Physical Exam Vitals reviewed. HENT: Right Ear: External ear normal. Nose: Nose normal. Mouth/Throat: Mouth: Mucous membranes are moist. Eyes: Extraocular Movements: Extraocular movements intact. Pupils: Pupils are equal, round, and reactive to light. Cardiovascular: Rate and Rhythm: Normal rate. Abdominal: General: Abdomen is flat. Palpations: Abdomen is soft. Musculoskeletal: General: No swelling or deformity. Normal range of motion. Arms: Cervical back: Normal range of motion. Legs: Comments: 3-4 cm lipoma palpated above left shoulder A grape sized skin tag is noted without discoloration Skin: General: Skin is warm. Capillary Refill: Capillary refill takes less than 2 seconds. Neurological: General: No focal deficit present. Mental Status: She is alert and oriented to person, place, and time. Radiology: No orders to display Lab Results: Lab Results - No data to display EKG: If EKG completed, see Procedure Note. Orders and Treatments: No orders of the defined types were placed in this encounter. No orders of the defined types were placed in this encounter. First Provider Eval: ED Events Date/Time Event User Comments 12/06/23 1329 Medical Screening Begins MARINE AVREY MD -- 12/06/23 1329 First Provider Evaluation MARINE AVERY MD -- ED COURSE Diagnosis/Impression as of 12/06/23 1338 Skin tag Lipoma of left shoulder Procedures: Procedures MDM: Medical Decision Making Pt here for right leg cyst and left shoulder cyst She has had the cyst in left shoulder for years She has had the cyst in the right leg for over a year They periodically cause pain No numbness no tingling no fever no chills Pain is when moved or bumped Rht right leg cyst gets pinched with clothing Left shoulder is pain when bumped Pt here for a skin tag and a lipoma These should be handled as ouptt and no emergent conditions would benefit from tissue/specimen histopath but ultimately as more than a year in course is not emergency Referral to General surgery placed Ketorlac sent to Pharmacy Risk OTC drugs. Prescription drug management. Flowsheet Documentation: Scoring Tools: No data recorded Disposition/Condition: ED Disposition None Discharge Medications: Patient's Medications No medications on file Follow-up: Electronically signed by: Marine Avery MD 12/06/23 1346 [facility]
[2024-06-15 13:23] LABS: SARS-CoV-2 Antigen CONTROL BLUE LINE VIS/BG OK; SARS-CoV-2 Antigen Rapid Res Negative (Negative)
--- NOTE | 2024-06-15 13:44 | EDPHYS ---
Physician Documentation [facility] Name: Jacky Lopez Age: 24 yrs Sex: Female : 2000 Arrival Date: 06/15/2024 Time: 11:38 Bed 15 Private MD: ED Physician Toño Cardenas HPI: 06/15 12:15 This 24 yrs old Female presents to ER via Ambulatory with complaints of Flu sb4 symptoms. 12:30 malaise, congestion, headache, 1 episode of vomiting since Sunday. daughter is sick sb4 with similar symptoms. no cough, fever, abdominal pain, shortness of breath, chest pain. Historical: - Allergies: 12:06 Latex; hb 12:06 lamotrigine; hb - Home Meds: 12:06 Abilify oral [Active]; Hydroxyzine Oral [Active]; hb - PMHx: 12:06 Anxiety; Depression; hb - PSHx: 12:06 Appendectomy; hb - Immunization history:: Adult Immunizations up to date. - Infectious Disease History:: Denies. - Social history:: Smoking status: Patient denies any tobacco usage or history of. ROS: 12:30 Cardiovascular: Negative for chest pain, palpitations, and edema, sb4 12:30 Constitutional: Positive for chills, malaise, 12:30 ENT: Positive for sinus congestion, 12:30 Abdomen/GI: Positive for nausea and vomiting, 12:30 All other systems are negative, Exam: 12:30 Constitutional: This is a well developed, well nourished patient who is awake, alert, sb4 and in no acute distress. Head/Face: Normocephalic, atraumatic. Eyes: Extra-ocular motions intact. Periorbital areas with no swelling, redness, or edema. ENT: Mucous membranes moist. Cardiovascular: Regular rate and rhythm with a normal S1 and S2. Respiratory: Lungs have equal breath sounds bilaterally, clear to auscultation and percussion. No rales, rhonchi or wheezes noted. No increased work of breathing, no retractions or nasal flaring. Abdomen/GI: Soft, non-tender, no distension. Skin: Warm, dry with normal turgor. Normal color with no rashes, no lesions, and no evidence of cellulitis. Vital Signs: 12:03 BP 115 / 73; Pulse 88; Resp 16; Temp 97.3(TE); Pulse Ox 98% on R/A; Weight 79.83 kg; hb Height 5 ft. 0 in. ; Pain 0/10; 13:26 BP 106 / 77; Pulse 74; Resp 16; Pulse Ox 99% ; ko1 12:03 Body Mass Index 34.37 (79.83 kg, 152.4 cm) hb 12:03 Pain Scale: Adult hb MDM: 11:55 Patient medically screened. sb4 13:48 Data reviewed: vital signs, nurses notes, lab test result(s), and as a result, I will sb4 discharge patient. Counseling: I had a detailed discussion with the patient and/or guardian regarding the historical points, exam findings, and any diagnostic results supporting the discharge/admit diagnosis, lab results, to return to the emergency department if symptoms worsen or persist or if there are any questions or concerns that arise at home. 06/15 12:11 Order name: Strep sb4 06/15 12:11 Order name: SARS RAPID; Complete Time: 13:29 sb4 06/15 12:11 Order name: Flu; Complete Time: 13:29 sb4 06/15 13:25 Order name: Throat Culture EDMS Administered Medications: No medications were administered Disposition: 06/16 07:42 Co-signature as Attending Physician, Toño Cardenas MD I reviewed the patient's care rn provided by the Advanced Practice Provider and agree with the diagnosis and treatment plan. Chart complete. Disposition Summary: 06/15/24 13:43 Discharge Ordered Notes: Location: Home sb4 Problem: new sb4 Symptoms: have improved sb4 Condition: Stable sb4 Diagnosis - Viral infection, unspecified sb4 Followup: sb4 - With: Private Physician - When: As needed - Reason: Recheck today's complaints, Re-evaluation by your physician Discharge Instructions: - Discharge Summary Sheet sb4 - Viral Illness, Adult sb4 Forms: - Patient Portal Instructions sb4 - Leadership Thank You Letter sb4 Signatures: Dispatcher [employer] Toño Powell MD MD rn Baxter, Heather, RN RN hb Brown, Sophia, PA-C PA-C sb4
--- NOTE | 2024-06-15 13:44 | ER ---
Nurse's Notes [facility] Name: Jacky Lopez Age: 24 yrs Sex: Female : 2000 Arrival Date: 06/15/2024 Time: 11:38 Bed 15 Private MD: Diagnosis: Viral infection, unspecified Presentation: 06/15 12:03 Chief complaint: Cough, congestion, nausea, and headache x 3 days. Vomit x 1 yesterday. hb Tolerating fluids. Coronavirus screen: Client presents with at least one sign or symptom that may indicate coronavirus-19. Provider contacted for isolation considerations. Ebola Screen: No symptoms or risks identified at this time. Initial Sepsis Screen: Does the patient meet any 2 criteria? No. Patient's initial sepsis screen is negative. Does the patient have a suspected source of infection? No. Patient's initial sepsis screen is negative. Risk Assessment: Do you want to hurt yourself or someone else? Patient reports no desire to harm self or others. Onset of symptoms was June 12, 2024. 12:03 Method Of Arrival: Ambulatory hb 12:03 Acuity: GENE 4 hb Historical: - Allergies: 12:06 Latex; hb 12:06 lamotrigine; hb - Home Meds: 12:06 Abilify oral [Active]; Hydroxyzine Oral [Active]; hb - PMHx: 12:06 Anxiety; Depression; hb - PSHx: 12:06 Appendectomy; hb - Immunization history:: Adult Immunizations up to date. - Infectious Disease History:: Denies. - Social history:: Smoking status: Patient denies any tobacco usage or history of. Screenin:[address] [facility] ED Fall Risk Assessment (Adult) History of falling in the last 3 months, ko1 including since admission No falls in past 3 months (0 pts) Confusion or Disorientation No (0 pts) Intoxicated or Sedated No (0 pts) Impaired Gait No (0 pts) Mobility Assist Device Used No (0 pt) Altered Elimination No (0 pt) Score/Fall Risk Level 0 - 2 = Low Risk Oriented to surroundings, Maintained a safe environment, Hourly rounding (assess needs \T\ fall precautionary measures) done. Abuse screen: Denies threats or abuse. Denies injuries from another. Nutritional screening: No deficits noted. Tuberculosis screening: No symptoms or risk factors identified. Assessment: 12:27 General: Appears in no apparent distress. Behavior is calm, cooperative, appropriate ko1 for age. Pain: Denies pain. Neuro: No deficits noted. Cardiovascular: Patient's skin is warm and dry. Respiratory: Airway is patent Breath sounds are clear bilaterally. GI: Reports nausea, vomiting. : No deficits noted. EENT: Reports nasal congestion. Derm: No deficits noted. Musculoskeletal: No deficits noted. Vital Signs: 12:03 BP 115 / 73; Pulse 88; Resp 16; Temp 97.3(TE); Pulse Ox 98% on R/A; Weight 79.83 kg; hb Height 5 ft. 0 in. ; Pain 0/10; 13:26 BP 106 / 77; Pulse 74; Resp 16; Pulse Ox 99% ; ko1 12:03 Body Mass Index 34.37 (79.83 kg, 152.4 cm) hb 12:03 Pain Scale: Adult hb ED Course: 11:50 Patient arrived in ED. mg5 11:51 Maggi Ann PA-C is PHCP. sb4 11:51 Toño Cardenas MD is Attending Physician. sb4 12:02 Maria Del Rosario Sewell RN is Primary Nurse. ko1 12:06 Triage completed. hb 12:08 Arm band placed on. hb 12:22 Strep Sent. ko1 12:22 Flu Sent. ko1 12:22 SARS RAPID Sent. ko1 12:24 COVID swab sent to lab. Flu and/or RSV swab sent to lab. Strep swab sent to lab. ko1 12:27 Patient has correct armband on for positive identification. Bed in low position. Call ko1 light in reach. Provided Education on: swabs. Pulse ox on. NIBP on. Door closed. Noise minimized. Lights dimmed. 12:27 No provider procedures requiring assistance completed. Patient did not have IV access ko1 during this emergency room visit. Administered Medications: No medications were administered Medication: 12:27 VIS not applicable for this client. ko1 Outcome: 13:43 Discharge ordered by . sb4 13:50 Discharged to home ambulatory, ko1 13:50 Condition: stable 13:50 Discharge instructions given to patient, Instructed on discharge instructions, follow up and referral plans. Demonstrated understanding of instructions, follow-up care, 13:51 Patient left the ED. ko1 Signatures: Ksenia Smith RN RN hb Maria Del Rosario Sewell, RN RN adalgisa1 Maggi Ann, PAAdarsh PACleveC fadi4 Kiersten Snyder mg5
[2024-06-15 14:02] VITALS: TEMP 97.3
[2024-06-15 14:04] VITALS: BP 106/77; O2SAT 99
== END 2024-06-15 13:51 | disposition home or self-care (01) ==
LOC: ER 11:38
DX: B34.9 Viral infection, unspecified (principal); Z11.52 Encounter for screening for COVID-19
CPT/HCPCS: 36415; 87070; 87081; 87804; 87811; 99283

== ENCOUNTER 2024-10-23 12:27 | Emergency (ER) | payer OTHER, SELFPAY ==
--- OUTSIDE RECORDS SUMMARY | 2024-10-23 12:30 | XMS REPORT | Continuity of Care Document ---
Author Name Unknown Address [address] [place] [address] [facility] thconnect Address [address] [place] [address] Care Team Providers Care Property Portfolio Officer Name Role Phone Pcp, Patient Does Not Have A Primary Care Physic cassia MARINE AVERY Attending Clinician Unavailable Marine Avery MD Attending Clinician [phone] Allergies, Adverse Reactions, Alerts Allergy Name Allergy Type Status Severity Reaction(s) Onset Date Inactive Date Treating Clinician Comments Source NO KNOWN ALLERGIE S Drug Class Active [facility] Social History Social Habit Start Date Stop Date Quantity Comments Source Sexual orientation U [facility] Sex Assigned At 2000 00:00:00 2000 00:00:00 [facility] Smoking Status Start Date Stop Date Source Tobacco smoking consumption unknown [facility] Medications Ordered Medication Name Filled Medication Name Start Date Stop Date Current Medication? Ordering Clinician Indication Dosage Frequency Signature (SIG) Comments Components Source ketorolac 10 mg tablet 12-05 00:00: 00 Yes [id number] 10mg Take 1 tablet by mouth every 6 (six) hours as needed for Pain (scale 1-3). [facility] Vital Signs Vital Name Observation Time Observation Value Comments Jd maynard Systolic blood pressure 2023-12-06 19:36:00 113 mm[Hg] [facility] Diastolic blood pressure 2023-12-06 19:36:00 85 mm[Hg] [facility] Heart rate 2023-12-06 19:36:00 103 /min [facility] Body temperature 2023-12-06 19:36:00 37.11 Susan [facility] Respiratory rate 2023-12-06 19:36:00 22 /min [facility] Body height 2023-12-06 19:36:00 152.4 cm [facility] Body weight 2023-12-06 19:36:00 83.598 kg [facility] BMI 2023-12-06 19:36:00 35.99 kg/m2 [facility] Oxygen saturation in Arterial blood by Pulse oximetry 2023-12-06 19:36:00 100 /min [place] [facility] Procedures Procedure Date / Time Performed Performing Clinicia n Source NOTICE OF PRIVACY PRACTICES 2023-12-06 20:07:51 Doctor Unassigned, [place] [facility] CONSENT/REFUSAL FOR DIAGNOSIS AND TREATMENT 2023-12-06 20:07:19 Doctor Unassigned, [place] [facility] ASSIGNMENT OF BENEFITS 2023-12-06 19:46:59 Docto r Unassigned, [place] [facility] NOTICE OF PRIVACY PRACTICES 2023-12-06 19:29:37 Doctor Unassigned, [place] [facility] NOTICE OF PRIVACY PRACTICES 2023-12-06 19:28:28 Doctor Unassigned, [place] [facility] Encounters Start Date/Time End Date/Time Encounter Type Admission Type Attending [facility] Care Facility Care Department Encounter ID Source 2023-12-06 13:39:00 2023-12-06 14:15:00 Emergency X MARINE AVERY [facility] ERT [id number] [facility] 2023-12-06 13:39:00 2023-12-06 14:15:00 Emergency Marine Avery [facility] [id number] [facility] Results Test Description Test Time Test Comments Results Result Co mments Source
[2024-10-23 14:02] LABS: Absolute Eosinophils 0.2 K/uL (0-0.5); Absolute Lymphocytes (CBC) 2.5 K/uL (0.7-4.9); Absolute Monocytes 0.5 K/uL (0.1-1.3); Basophils % 0.4 % (0-1.3); Eosinophils % 2.4 % (0-4.4); Hematocrit 35.7 % (36.0-45.0); Lymphocytes % 30.7 % (15.3-44.8); MCH 27.1 pg (27.0-35.0); MCHC 33.7 g/dL (32.0-36.0); MCV 80.5 fL (80-100); MPV 7.5 fL (7.6-11.3); Monocytes % 5.7 % (3.3-12.3); Neutrophils % 60.8 % (41.7-73.7); Platelets 262 thou/uL (152-406); RBC Red Blood Cell Count 4.43 M/uL (3.86-4.86); Red Cell Distribution Width 14.2 % (12.1-15.2)
[2024-10-23 14:03] LABS: Specific Gravity 1.028 (1.005-1.030)
[2024-10-23 14:16] LABS: Anion Gap 5.4 mEq/L (5.0-15.0); Potassium 4.4 mEq/L (3.5-5.1)
--- NOTE | 2024-10-23 17:03 | RAD REPORT ---
EXAMINATION: US Transvaginal OB CLINICAL INDICATION: Female 24 years old.[facility] MAIN Abd cramping, ;Vaginal bleeding Bed Name: IW1 TECHNIQUE: Real-time ultrasonography of the pelvis was performed transvaginally. Color and spectral D oppler evaluation of the ovaries was performed. COMPARISON: No prior exam. FINDINGS: UTERUS AND CERVIX: The uterus measures 8.7 cm in length. The uterus is normal. No masses seen The end ometrium is normal, without focal abnormality or residual fluid, measuring 2.5 cm in thickness. RIGHT OVARY: Normal The right ovary measures 2.7 x 1.9 x 2.3 cm. Normal color and spectral Doppler evaluation of the right ovary.. LEFT OVARY: Normal The left ovary measures 2.7 x 1.5 x 2.3 cm. Normal color and spectral Doppler evaluation of the left ovary.. FREE FLUID: No free fluid. IMPRESSION: No evidence of an intrauterine . No focal endometrial abnormalities. No suspicious adnexal abnormality.
--- NOTE | 2024-10-23 17:36 | EDPHYS ---
Physician Documentation [facility] Name: Jacky Lopez Age: 24 yrs Sex: Female : 2000 Arrival Date: 10/23/2024 Time: 12:27 Bed 13 Private MD: ED Physician Macario Rust HPI: 10/23 14:35 This 24 yrs old Female presents to ER via Ambulatory with complaints of cp Vaginal Bleeding - Heavy. 14:35 The patient presents with vaginal bleeding that is with clots, with tissue. Onset: The cp symptoms/episode began/occurred 3 day(s) ago. Associated signs and symptoms: Pertinent positives: lower abdomen pain, Pertinent negatives: fever, vomiting. Severity of symptoms: in the emergency department the symptoms are unchanged, despite home interventions. 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 - Infectious Disease History:: Denies. - Social history:: Smoking status: Patient denies any tobacco usage or history of. ROS: 14:40 Constitutional: Negative for body aches, chills, fever, poor PO intake, cp 14:40 Eyes: Negative for injury, pain, redness, and discharge, cp 14:40 Cardiovascular: Negative for chest pain, 14:40 Respiratory: Negative for cough, shortness of breath, wheezing, 14:40 Abdomen/GI: Positive for abdominal pain, of the right lower quadrant and left lower quadrant, Negative for vomiting, diarrhea, constipation, 14:40 Back: Positive for pain at rest, of the low back area, 14:40 : Positive for vaginal bleeding, 14:40 Neuro: Negative for altered mental status, dizziness, headache, weakness, 14:40 All other systems are negative, Exam: 14:43 Constitutional: The patient appears in no acute distress, alert, awake, non-toxic, well cp developed, well nourished, 14:43 Head/Face: Normocephalic, atraumatic. cp 14:43 Eyes: Periorbital structures: appear normal, Conjunctiva: normal, no exudate, no injection, Sclera: no appreciated abnormality, Lids and lashes: appear normal, bilaterally, 14:43 ENT: External ear(s): are unremarkable, Nose: is normal, Posterior pharynx: Airway: no evidence of obstruction, patent, 14:43 Chest/axilla: Inspection: normal, 14:43 Cardiovascular: Rate: normal, 14:43 Respiratory: the patient does not display signs of respiratory distress, Respirations: normal, no use of accessory muscles, no retractions, labored breathing, is not present, Breath sounds: are clear throughout, no decreased breath sounds, no stridor, no wheezing, 14:43 Abdomen/GI: Inspection: abdomen appears normal, Bowel sounds: active, all quadrants, Palpation: soft, in all quadrants, mild abdominal tenderness, in the right lower quadrant and left lower quadrant, rebound tenderness, is not appreciated, involuntary guarding, is not appreciated, 14:43 Back: pain, that is mild, of the low back area, 14:43 Neuro: Orientation: to person, place \T\ time. Mentation: is normal, Motor: moves all fours, strength is normal, Vital Signs: 12:44 BP 128 / 94; Pulse 82; Resp 18; Temp 97.8(TE); Pulse Ox 100% on R/A; Weight 82.55 kg; ld1 Height 5 ft. 0 in. ; Pain 7/10; 16:05 BP 108 / 66; Pulse 80; Resp 18; Pulse Ox 100% on R/A; db 17:30 BP 101 / 75; Pulse 89; Resp 18; Pulse Ox 99% on R/A; db 12:44 Body Mass Index 35.54 (82.55 kg, 152.4 cm) ld1 12:44 Pain Scale: Adult ld1 MDM: 14:00 Differential diagnosis: ectopic , menometrorrhagia, molar preganancy, ruptured cp ectopic , urinary tract infection. 17:35 Medical Screening Exam initiated cp 17:35 Data reviewed: vital signs, nurses notes, lab test result(s), radiologic studies, cp ultrasound, and as a result, I will discharge patient. 17:35 Counseling: I had a detailed discussion with the patient and/or guardian regarding the cp historical points, exam findings, and any diagnostic results supporting the discharge/admit diagnosis, lab results, radiology results, the need for outpatient follow up, a family practitioner, to return to the emergency department if symptoms worsen or persist or if there are any questions or concerns that arise at home. Special discussion: Based on the patient's Hx, exam, and Dx evaluation, there is no indication for emergent surgery or inpatient Tx. It is understood by the patient/guardian that if the Sx's persist or worsen they need to return immediately for re-evaluation. 10/23 13:07 Order name: Abo/rh Typing; Complete Time: 14:29 ap3 10/23 14:34 Interpretation: Reviewed. cp 10/23 13:07 Order name: Basic Metabolic Panel; Complete Time: 14:29 ap3 10/23 14:34 Interpretation: Normal except: CL 108. cp 10/23 13:07 Order name: CBC with Diff; Complete Time: 14:29 ap3 10/23 14:34 Interpretation: Normal except: HCT 35.7; MPV 7.5. cp 10/23 13:07 Order name: Test, Urine; Complete Time: 14:29 ap3 10/23 14:34 Interpretation: Reviewed. cp 10/23 13:56 Order name: HCG-Quantitative; Complete Time: 15:14 cp 10/23 15:14 Interpretation: Reviewed. cp 10/23 14:34 Order name: US Transvaginal Ob; Complete Time: 17:25 cp 10/23 17:26 Interpretation: Report reviewed. cp 10/23 13:07 Order name: IV Saline Lock; Complete Time: 13:55 ap3 10/23 13:07 Order name: Labs collected and sent; Complete Time: 13:55 ap3 10/23 13:07 Order name: NPO; Complete Time: 13:34 ap3 Administered Medications: No medications were administered Disposition Summary: 10/23/24 17:35 Discharge Ordered Notes: Location: Home cp Problem: new cp Symptoms: have improved cp Condition: Stable cp Diagnosis - Threatened cp Followup: cp - With: Private Physician - When: 48 Hours - Reason: Repeat Beta-HCG (48 Hours) Discharge Instructions: - Discharge Summary Sheet cp - Abdominal Pain During cp - Care cp - Threatened Miscarriage cp - Vaginal Bleeding During , First Trimester cp - First Trimester of cp - Activity Restriction During cp Forms: - Medication Reconciliation Form cp - Antibiotic Education cp - Prescription Opioid Use cp - Patient Portal Instructions cp - Leadership Thank You Letter cp Signatures: Dispatcher [employer] EDMS Keaton Ramirez PA PA cp Prokisch, Amanda, RN RN ap3 Livier Cleveland RN RN ld1 Corrections: (The following items were deleted from the chart) 13: 13:07 ABO/RH TYPING+BB.LAB.BRZ ordered. EDMS EDMS 13: 13:07 BASIC METABOLIC PANEL+C.LAB.BRZ ordered. EDMS EDMS 13: 13:07 CBC+H.LAB.BRZ ordered. EDMS EDMS 13: 13:07 Test, Urine+UC.LAB.BRZ ordered. EDMS EDMS
--- NOTE | 2024-10-23 17:36 | ER ---
Nurse's Notes [facility] Name: Jacky Lopez Age: 24 yrs Sex: Female : 2000 Arrival Date: 10/23/2024 Time: 12:27 Bed 13 Private MD: Diagnosis: Threatened Presentation: 10/23 12:44 Chief complaint: Patient states: C/O heavy bleeding and abdominal pain since Sunday - ld1 passed clot that looked like tissue. Concerned about possible miscarriage. Coronavirus screen: At this time, the client does not indicate any symptoms associated with coronavirus-19. Ebola Screen: No symptoms or risks identified at this time. Initial Sepsis Screen: Does the patient meet any 2 criteria? No. Patient's initial sepsis screen is negative. Does the patient have a suspected source of infection? No. Patient's initial sepsis screen is negative. Risk Assessment: Do you want to hurt yourself or someone else? Patient reports no desire to harm self or others. Onset of symptoms was October 23, 2024 at 12:46. 12:44 Method Of Arrival: Ambulatory ld1 12:44 Acuity: GENE 3 ld1 Triage Assessment: 12:44 General: Appears in no apparent distress. comfortable, Behavior is calm, cooperative, ld1 appropriate for age. Pain: Complains of pain in abdomen Pain does not radiate. Pain currently is 7 out of 10 on a pain scale. Quality of pain is described as crampy, throbbing, Pain began 2-3 days ago. Is continuous. EENT: No signs and/or symptoms were reported regarding the EENT system. Neuro: Level of Consciousness is awake, alert, obeys commands, Oriented to person, place, time, situation, Appropriate for age. Cardiovascular: Capillary refill < 3 seconds Patient's skin is warm and dry. Respiratory: Airway is patent Respiratory effort is even, unlabored. GI: Abdomen is round non-distended. : Reports vaginal bleeding that is with clots, heavy flow. Derm: No signs and/or symptoms reported regarding the dermatologic system. Musculoskeletal: No signs and/or symptoms reported regarding the musculoskeletal system. 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 - Infectious Disease History:: Denies. - Social history:: Smoking status: Patient denies any tobacco usage or history of. Screenin:15 [facility] ED Fall Risk Assessment (Adult) History of falling in the last 3 months, db including since admission No falls in past 3 months (0 pts) Confusion or Disorientation No (0 pts) Intoxicated or Sedated No (0 pts) Impaired Gait No (0 pts) Mobility Assist Device Used No (0 pt) Altered Elimination No (0 pt) Score/Fall Risk Level 0 - 2 = Low Risk Oriented to surroundings, Maintained a safe environment. Abuse screen: Denies threats or abuse. Denies injuries from another. Nutritional screening: No deficits noted. Tuberculosis screening: No symptoms or risk factors identified. Assessment: 16:14 Reassessment: Patient appears in no apparent distress at this time. Patient and/or db family updated on plan of care and expected duration. Pain level reassessed. Patient is alert, oriented x 3, equal unlabored respirations, skin warm/dry/pink. General: Appears in no apparent distress. comfortable, Behavior is calm, cooperative. Neuro: Level of Consciousness is awake, alert, obeys commands, Oriented to person, place, time, situation. 17:30 Reassessment: Patient appears in no apparent distress at this time. Patient and/or db family updated on plan of care and expected duration. Pain level reassessed. Patient is alert, oriented x 3, equal unlabored respirations, skin warm/dry/pink. General: Appears in no apparent distress. comfortable, Behavior is calm, cooperative. Neuro: Level of Consciousness is awake, alert, obeys commands, Oriented to person, place, time, situation. Respiratory: Airway is patent Respiratory effort is even, unlabored, Respiratory pattern is regular, symmetrical. Vital Signs: 12:44 BP 128 / 94; Pulse 82; Resp 18; Temp 97.8(TE); Pulse Ox 100% on R/A; Weight 82.55 kg; ld1 Height 5 ft. 0 in. ; Pain 7/10; 16:05 BP 108 / 66; Pulse 80; Resp 18; Pulse Ox 100% on R/A; db 17:30 BP 101 / 75; Pulse 89; Resp 18; Pulse Ox 99% on R/A; db 12:44 Body Mass Index 35.54 (82.55 kg, 152.4 cm) ld1 12:44 Pain Scale: Adult ld1 ED Course: 12:31 Patient arrived in ED. ra3 12:44 Arm band placed on right wrist. ld1 12:46 Triage completed. ld1 13:33 Keaton Ramirez PA is PHCP. cp 13:33 Macario Rust MD is Attending Physician. cp 13:55 Inserted saline lock: 22 gauge in right antecubital area, using aseptic technique. nh2 Blood collected. Flushed with 10 mL NS. 13:55 Abo/rh Typing Sent. nh2 13:55 Basic Metabolic Panel Sent. nh2 13:55 CBC with Diff Sent. nh2 13:55 Test, Urine Sent. nh2 15:30 US Transvaginal Ob In Process Unspecified. EDMS 16:02 Ericka Wynn, RN is Primary Nurse. db 16:57 Patient has correct armband on for positive identification. Side rails up X 1. Pulse ox db on. NIBP on. 17:51 Provided Education on: DISCHARGE. Warm blanket given. Pillow given. db 17:51 No provider procedures requiring assistance completed. IV discontinued, intact, db bleeding controlled, No redness/swelling at site. Administered Medications: No medications were administered Medication: 17:51 VIS not applicable for this client. db Outcome: 17:35 Discharge ordered by . cp 17:51 Discharged to home ambulatory, with family, db 17:51 Condition: stable 17:51 Discharge instructions given to patient, Instructed on discharge instructions, follow up and referral plans. 17:53 Patient left the ED. db Signatures: Dispatcher [employer] EDMS Keaton Ramirez PA PA cp Sims, Lauren RN RN ld1 Ericka Wynn, STANTON RN db Wen Madden ra3 Mckinley Marroquin, Oc nh2
[2024-10-23 20:15] VITALS: TEMP 97.8
[2024-10-23 20:21] VITALS: BP 101/75; O2SAT 99
== END 2024-10-23 17:53 | disposition home or self-care (01) ==
LOC: ER 12:27
DX: O20.0 Threatened abortion (principal)
CPT/HCPCS: 36415; 76817; 80048; 81025; 84702; 85025; 86900; 86901; 99284

== ENCOUNTER 2024-10-25 15:28 | Emergency (ER) | payer OTHER ==
--- OUTSIDE RECORDS SUMMARY | 2024-10-25 15:31 | XMS REPORT | Continuity of Care Document ---
Author Name Unknown Address [address] [place] [address] [facility] thconnect Address [address] [place] [address] Care Team Providers Care Wholes[employer] Merchant Name Role Phone Pcp, Patient Does Not Have A Primary Care Physic cassia MARINE AVERY Attending Clinician Unavailable Marine Avery MD Attending Clinician [phone] Allergies, Adverse Reactions, Alerts Allergy Name Allergy Type Status Severity Reaction(s) Onset Date Inactive Date Treating Clinician Comments Source NO KNOWN ALLERGIE S Drug Class Active [facility] Social History Social Habit Start Date Stop Date Quantity Comments Source Sexual orientation U [facility] Sex Assigned At 2000 00:00:00 2000 00:00:00 [facility] Smoking Status Start Date Stop Date Source Tobacco smoking consumption unknown [facility] Medications Ordered Medication Name Filled Medication Name Start Date Stop Date Current Medication? Ordering Clinician Indication Dosage Frequency Signature (SIG) Comments Components Source ketorolac 10 mg tablet 12-05 00:00: 00 Yes [id number] 10mg Take 1 tablet by mouth every 6 (six) hours as needed for Pain (scale 1-3). [facility] Vital Signs Vital Name Observation Time Observation Value Comments Jd maynard Systolic blood pressure 2023-12-06 19:36:00 113 mm[Hg] [facility] Diastolic blood pressure 2023-12-06 19:36:00 85 mm[Hg] [facility] Heart rate 2023-12-06 19:36:00 103 /min [facility] Body temperature 2023-12-06 19:36:00 37.11 Susan [facility] Respiratory rate 2023-12-06 19:36:00 22 /min [facility] Body height 2023-12-06 19:36:00 152.4 cm [facility] Body weight 2023-12-06 19:36:00 83.598 kg [facility] BMI 2023-12-06 19:36:00 35.99 kg/m2 [facility] Oxygen saturation in Arterial blood by Pulse oximetry 2023-12-06 19:36:00 100 /min Benedict o f [facility] Procedures Procedure Date / Time Performed Performing Clinicia n Source NOTICE OF PRIVACY PRACTICES 2023-12-06 20:07:51 Doctor Unassigned, [place] [facility] CONSENT/REFUSAL FOR DIAGNOSIS AND TREATMENT 2023-12-06 20:07:19 Doctor Unassigned, [place] [facility] ASSIGNMENT OF BENEFITS 2023-12-06 19:46:59 Docto r Unassigned, [place] [facility] NOTICE OF PRIVACY PRACTICES 2023-12-06 19:29:37 Doctor Unassigned, [place] [facility] NOTICE OF PRIVACY PRACTICES 2023-12-06 19:28:28 Doctor Unassigned, [place] [facility] Encounters Start Date/Time End Date/Time Encounter Type Admission Type Attending [facility] Care Department Encounter ID Source 2023-12-06 13:39:00 2023-12-06 14:15:00 Emergency X MARINE AVERY [facility] ERT [id number] [facility] 2023-12-06 13:39:00 2023-12-06 14:15:00 Emergency Marine Avery [facility] [id number] [facility] Results Test Description Test Time Test Comments Results Result Co mments Source
--- NOTE | 2024-10-25 16:30 | ER ---
Nurse's Notes [facility] Name: Jacky Lopez Age: 24 yrs Sex: Female : 2000 Arrival Date: 10/25/2024 Time: 15:28 Bed 11 Private MD: Diagnosis: Complete or unspecified spontaneous without complication Presentation: 10/25 15:36 Chief complaint: Patient states: was here and told to come back to recheck hcg ko1 levels. Coronavirus screen: At this time, the client does not indicate any symptoms associated with coronavirus-19. Ebola Screen: No symptoms or risks identified at this time. Initial Sepsis Screen: Does the patient meet any 2 criteria? No. Patient's initial sepsis screen is negative. Does the patient have a suspected source of infection? No. Patient's initial sepsis screen is negative. Risk Assessment: Do you want to hurt yourself or someone else? Patient reports no desire to harm self or others. Onset of symptoms is unknown. 15:36 Method Of Arrival: Ambulatory ko1 15:36 Acuity: GENE 4 ko1 Triage Assessment: 15:39 General: Appears in no apparent distress. Behavior is cooperative, anxious. Pain: ko1 Denies pain. 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 - Infectious Disease History:: Denies. - Social history:: Smoking status: Patient denies any tobacco usage or history of. Screenin:00 [facility] ED Fall Risk Assessment (Adult) History of falling in the last 3 months, hb including since admission No falls in past 3 months (0 pts) Confusion or Disorientation No (0 pts) Intoxicated or Sedated No (0 pts) Impaired Gait No (0 pts) Mobility Assist Device Used No (0 pt) Altered Elimination No (0 pt) Score/Fall Risk Level 0 - 2 = Low Risk Oriented to surroundings, Maintained a safe environment, Educated pt \T\ family on fall prevention, incl call for assistance when getting out of bed. Abuse screen: Denies threats or abuse. Denies injuries from another. Nutritional screening: No deficits noted. Tuberculosis screening: No symptoms or risk factors identified. Assessment: 16:00 General: Appears in no apparent distress. Behavior is calm, cooperative. Neuro: GCS 15. hb Cardiovascular: Patient's skin is warm and dry. Respiratory: Respiratory effort is even, unlabored, Respiratory pattern is regular, symmetrical. Vital Signs: 15:36 BP 116 / 82; Pulse 84; Resp 17; Temp 97.4; Pulse Ox 100% ; ko1 ED Course: 15:30 Patient arrived in ED. im 15:32 [facility] Kitchen [facility]C [facility] kb 15:32 Ronal Crain MD is Attending Physician. kb 15:39 Triage completed. ko1 15:39 Arm band placed on right wrist. Patient placed in an exam room, on a stretcher, Patient ko1 notified of wait time. 16:00 Patient has correct armband on for positive identification. Provided Education on: hb follow up. 16:00 No provider procedures requiring assistance completed. Patient did not have IV access hb during this emergency room visit. 16:47 Ksenia Smith, RN is Primary Nurse. hb Administered Medications: No medications were administered Medication: 16:00 VIS not applicable for this client. hb Outcome: 16:29 Discharge ordered by . kb 16:52 Discharged to home ambulatory, hb 16:52 Condition: stable 16:52 Discharge instructions given to patient, Instructed on discharge instructions, follow up and referral plans. medication usage, Demonstrated understanding of instructions, follow-up care, medications, 16:53 Patient left the ED. hb Signatures: Rachel Kitchen FNP-C FNP-Ksenia Mckeon, RN RN hb Maria Del Rosario Sewell RN RN ko1 Radha Dougherty im
--- NOTE | 2024-10-25 16:30 | EDPHYS ---
Physician Documentation [facility] Name: Jacky Lopez Age: 24 yrs Sex: Female : 2000 Arrival Date: 10/25/2024 Time: 15:28 Bed 11 Private MD: ED Physician Ronal Crain HPI: 10/25 15:45 This 24 yrs old Female presents to ER via Ambulatory with complaints of HCG kb level check. 15:45 Pt is a 24 year old female who presents for repeat HCG. States she was seen here 2 days kb ago for vaginal bleeding and cramping, was told she was but her hcg was very low so she needed to return today for repeat hcg. States she is still having some bleeding, but the cramping has resolved. Denies pain. LMP 09/19/24. A0. 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 - Infectious Disease History:: Denies. - Social history:: Smoking status: Patient denies any tobacco usage or history of. ROS: 16:29 Constitutional: As per HPI kb Exam: 16:29 Constitutional: This is a well developed, well nourished patient who is awake, alert, kb and in no acute distress. Head/Face: Normocephalic, atraumatic. ENT: Moist Mucous membranes Cardiovascular: Regular rate Respiratory: Respirations even and unlabored. No increased work of breathing. Talking in full sentences Abdomen/GI: Soft, non-tender. No distention Skin: Warm, dry with normal turgor. Normal color. MS/ Extremity: Pulses equal, no cyanosis. Neurovascular intact. Full, normal range of motion. Neuro: Awake and alert, GCS 15, oriented to person, place, time, and situation. Vital Signs: 15:36 BP 116 / 82; Pulse 84; Resp 17; Temp 97.4; Pulse Ox 100% ; ko1 MDM: 15:32 Medical Screening Exam initiated kb 16:29 Differential diagnosis: threatened , spontaneous , ectopic . kb Data reviewed: vital signs, nurses notes. Counseling: I had a detailed discussion with the patient and/or guardian regarding the historical points, exam findings, and any diagnostic results supporting the discharge/admit diagnosis, lab results, the need for outpatient follow up, an OB/Gyne specialist, to return to the emergency department if symptoms worsen or persist or if there are any questions or concerns that arise at home. 10/25 15:33 Order name: HCG-Quantitative; Complete Time: 16:22 kb Administered Medications: No medications were administered Disposition: 18:02 Co-signature as Attending Physician, Ronal Crain MD I reviewed the patient's care rt provided by the Advanced Practice Provider and agree with the diagnosis and treatment plan. Disposition Summary: 10/25/24 16:29 Discharge Ordered Notes: Location: Home kb Condition: Stable kb Diagnosis - Complete or unspecified spontaneous without complication kb Followup: kb - With: Emergency Department - When: As needed - Reason: Worsening of condition Followup: kb - With: Private Physician - When: 2 - 3 days - Reason: Recheck today's complaints, Continuance of care, Re-evaluation by your physician Discharge Instructions: - Discharge Summary Sheet kb - Miscarriage, [id number] kb Forms: - Medication Reconciliation Form kb - Antibiotic Education kb - Prescription Opioid Use kb - Patient Portal Instructions kb - Leadership Thank You Letter kb Signatures: Dispatcher [employer] Rachel Carson, SILAS-C LABORATORY TECHNOLOGIST-Maria Del Rosario Ragsdale RN RN ko1 Ronal Crain MD MD rt Corrections: (The following items were deleted from the chart) 16:32 15:45 LMP 09/19/24. A0. kb kb 16:32 15:45 Pt is a 24 year old female who presents for repeat HCG. States she was seen here kb 2 days ago for vaginal bleeding and cramping, was told she was but her hcg was very low so she needed to return today for repeat hcg. LMP 09/19/24. A0. kb
[2024-10-25 19:36] VITALS: BP 116/82; TEMP 97.4; O2SAT 100
== END 2024-10-25 16:53 | disposition home or self-care (01) ==
LOC: ER 15:28
DX: O03.9 Complete or unspecified spontaneous abortion without complication (principal)
CPT/HCPCS: 36415; 84702; 99282

== ENCOUNTER 2025-07-04 17:55 | Emergency (ER) | payer OTHER ==
--- OUTSIDE RECORDS SUMMARY | 2025-07-04 17:59 | XMS REPORT | Continuity of Care Document ---
Author Name Unknown Address [address] [facility] [address] [place] [address] [facility] [address] [facility]. [address] [place] [address] Care Team Providers Care Remote Sensing Surveyor Name Role Phone Pcp, Patient Does Not Have A Primary Care Physic cassia DERREK DUTTON Attending Clinician MARINE William Attending Clinician Unavailable Marine Harrison MD Attending Clinician [phone] Problems Condition Name Condition Details Condition Category Status Onset Date Resolution Date Last Treatment Date Treating Clinician Comments Source Problem Active 9- 00:00: 00 [facility] Weight increased Weight Increased Problem Active - 00:00: 00 [facility] Abnormal uterine bleeding Abnormal Uterine Bleeding Problem Active 8- 00:00: 00 [facility] Stenosis of cervix Stenosis of Cervix Problem Active 8- 00:00: 00 [facility] Endometriu m thickened Endometriu m Thickened Problem Active 8- 00:00: 00 [facility] Prolactin level above reference range Prolactin Level above Reference Range Problem Active -28 00:00: 00 [facility] Missed period Missed Period Problem Active 7- 00:00: 00 [facility] Heartburn Heartburn Problem Active - 00:00: 00 [facility] Anxiety Anxiety Problem Active 04-14 00:00: 00 [facility] Depressive disorder Depressive Disorder Problem Active 04-14 00:00: 00 [facility] Bradycardi a Bradycardi a Problem Active 04-14 00:00: 00 [facility] Abnormal heart beat Abnormal Heart Beat Problem Active 04-14 00:00: 00 [facility] Pain in pelvis Pain in Pelvis Problem Active 04-14 00:00: 00 [facility] Amenorrhea Amenorrhea Problem Active 04-14 00:00: 00 [facility] [id number] Current moderate episode of major depressive disorder without prior episode Problem [facility] [id number] Gastroesop hageal reflux disease without esophagiti s Problem [facility] [id number] Normocytic anemia Problem [facility] [id number] Mixed hyperlipid emia Problem [facility] [id number] CRISTOPHER (generaliz ed anxiety disorder) Problem [facility] Allergies, Adverse Reactions, Alerts Allergy Name Allergy Type Status Severity Reaction(s) Onset Date Inactive Date Treating Clinician Comments Source NO KNOWN ALLERGIE S Drug Class Active [facility] Latex Latex Active Unknown [facility] lamotrig ine lamotrig ine Active Unknown [facility] Social History Social Habit Start Date Stop Date Quantity Comments Source History of Tobacco Use [facility] Sex Assigned At [facility] Sexual orientation [facility] Smoking Status Start Date Stop Date Source Never Smoker [facility] Tobacco smoking consumption unknown [facility] Heavy Tobacco Smoker [facility] Former Smoker 2025-05-06 00:00:00 2025-05-06 00:00:00 [facility] Medications Ordered Medication Name Filled Medication Name Start Date Stop Date Current Medication? Ordering Clinician Indication Dosage Frequency Signature (SIG) Comments Components Source ketorolac 30 mg/mL (1 mL) injection solution Inject 1 mL every 6 hours by intramuscul ar route. ketorolac 30 mg/mL (1 mL) injection solution Inject 1 mL every 6 hours by intramuscul ar route. 15 09:22: 56 No 1mL Q6H ketorolac 30 mg/mL (1 mL) injection solution Inject 1 mL every 6 hours by intramuscu lar route. [facility] Ondansetron HCl 4 MG Ondansetron HCl 4 MG 04-06 00:00: 00 No 1{table t} QD Ondansetro n HCl 4 MG ketorolac 10 mg tablet 12-05 00:00: 00 Yes [id number] 10mg Take 1 tablet by mouth every 6 (six) hours as needed for Pain (scale 1-3). [facility] ity [facility] FLUoxetine HCl 10 MG FLUoxetine HCl 10 MG No FLUoxetine HCl 10 MG Abilify Abilify No Abilify P [facility] hydrOXYzine HCl 25 MG hydrOXYzine HCl 25 MG No hydrOXYzin e HCl 25 MG fluoxetine 10 mg capsule TAKE ONE (1) CAPSULE(S) BY MOUTH ONCE A DAY. fluoxetine 10 mg capsule TAKE ONE (1) CAPSULE(S) BY MOUTH ONCE A DAY. No fluoxetine 10 mg capsule TAKE ONE (1) CAPSULE(S) BY MOUTH ONCE A DAY. [facility] ARIPiprazol e 5 MG ARIPiprazol e 5 MG No ARIPiprazo le 5 MG hydroxyzine HCl 25 mg tablet TAKE ONE (1) TABLET(S) BY MOUTH THREE TIMES A DAY. hydroxyzine HCl 25 mg tablet TAKE ONE (1) TABLET(S) BY MOUTH THREE TIMES A DAY. No hydroxyzin e HCl 25 mg tablet TAKE ONE (1) TABLET(S) BY MOUTH THREE TIMES A DAY. [facility] ondansetron HCl 4 mg tablet TAKE ONE (1) TABLET(S) BY MOUTH ONCE A DAY FOR NAUSEA. ondansetron HCl 4 mg tablet TAKE ONE (1) TABLET(S) BY MOUTH ONCE A DAY FOR NAUSEA. No ondansetro n HCl 4 mg tablet TAKE ONE (1) TABLET(S) BY MOUTH ONCE A DAY FOR NAUSEA. [facility] pantoprazol e 40 mg tablet,[place] yed release TAKE ONE (1) TABLET 1/2 TO 1 HOUR BEFORE MORNING MEAL ONCE A DAY. pantoprazol e 40 mg tablet,[place] yed release TAKE ONE (1) TABLET 1/2 TO 1 HOUR BEFORE MORNING MEAL ONCE A DAY. No pantoprazo le 40 mg tablet,[place] ayed release TAKE ONE (1) TABLET 1/2 TO 1 HOUR BEFORE MORNING MEAL ONCE A DAY. [facility] Loestrin 1/20 (21) 1 mg-20 mcg tablet Take 1 tablet every day by oral route for 30 days. Loestrin 1/20 (21) 1 mg-20 mcg tablet Take 1 tablet every day by oral route for 30 days. No 1 Q1D Loestrin 1/20 (21) 1 mg-20 mcg tablet Take 1 tablet every day by oral route for 30 days. [facility] Provera 10 mg tablet Take 1 tablet twice a day by oral route for 5 days. Provera 10 mg tablet Take 1 tablet twice a day by oral route for 5 days. No 1 BID Provera 10 mg tablet Take 1 tablet twice a day by oral route for 5 days. [facility] amoxicillin 875 mg-potassiu m clavulanate 125 mg tablet TAKE ONE (1) TABLET(S) BY MOUTH EVERY TWELVE HOURS FOR 5 DAYS. amoxicillin 875 mg-potassiu m clavulanate 125 mg tablet TAKE ONE (1) TABLET(S) BY MOUTH EVERY TWELVE HOURS FOR 5 DAYS. No amoxicilli n 875 mg-potassi um clavulanat e 125 mg tablet TAKE ONE (1) TABLET(S) BY MOUTH EVERY TWELVE HOURS FOR 5 DAYS. [facility] aripiprazol e 2 mg tablet TAKE ONE (1) TABLET(S) BY MOUTH DAILY. aripiprazol e 2 mg tablet TAKE ONE (1) TABLET(S) BY MOUTH DAILY. No aripiprazo le 2 mg tablet TAKE ONE (1) TABLET(S) BY MOUTH DAILY. [facility] aripiprazol e 5 mg tablet TAKE ONE (1) TABLET(S) BY MOUTH ONCE A DAY. aripiprazol e 5 mg tablet TAKE ONE (1) TABLET(S) BY MOUTH ONCE A DAY. No aripiprazo le 5 mg tablet TAKE ONE (1) TABLET(S) BY MOUTH ONCE A DAY. [facility] celecoxib 200 mg capsule TAKE ONE (1) CAPSULE(S) BY MOUTH THE NIGHT BEFORE PROCEDURE FOR 1 DAY. celecoxib 200 mg capsule TAKE ONE (1) CAPSULE(S) BY MOUTH THE NIGHT BEFORE PROCEDURE FOR 1 DAY. No celecoxib 200 mg capsule TAKE ONE (1) CAPSULE(S) BY MOUTH THE NIGHT BEFORE PROCEDURE FOR 1 DAY. [facility] dicyclomine 20 mg tablet TAKE ONE (1) TABLET(S) BY MOUTH FOUR TIMES A DAY NEEDED FOR PAIN. dicyclomine 20 mg tablet TAKE ONE (1) TABLET(S) BY MOUTH FOUR TIMES A DAY NEEDED FOR PAIN. No dicyclomin e 20 mg tablet TAKE ONE (1) TABLET(S) BY MOUTH FOUR TIMES A DAY NEEDED FOR PAIN. [facility] fluoxetine 10 mg capsule TAKE ONE (1) CAPSULE(S) BY MOUTH ONCE A DAY. fluoxetine 10 mg capsule TAKE ONE (1) CAPSULE(S) BY MOUTH ONCE A DAY. No fluoxetine 10 mg capsule TAKE ONE (1) CAPSULE(S) BY MOUTH ONCE A DAY. [facility] folic acid 1 mg tablet Take 1 tablet every day by oral route. folic acid 1 mg tablet Take 1 tablet every day by oral route. No 1 Q1D folic acid 1 mg tablet Take 1 tablet every day by oral route. [facility] hydroxyzine HCl 25 mg tablet TAKE ONE (1) TABLET(S) BY MOUTH THREE TIMES A DAY. hydroxyzine HCl 25 mg tablet TAKE ONE (1) TABLET(S) BY MOUTH THREE TIMES A DAY. No hydroxyzin e HCl 25 mg tablet TAKE ONE (1) TABLET(S) BY MOUTH THREE TIMES A DAY. [facility] ibuprofen 800 mg tablet TAKE ONE (1) TABLET(S) BY MOUTH EVERY EIGHT HOURS NEEDED FOR PAIN . DO NOT EXCEED FOUR (4) TABLETS A DAY. ibuprofen 800 mg tablet TAKE ONE (1) TABLET(S) BY MOUTH EVERY EIGHT HOURS NEEDED FOR PAIN . DO NOT EXCEED FOUR (4) TABLETS A DAY. No ibuprofen 800 mg tablet TAKE ONE (1) TABLET(S) BY MOUTH EVERY EIGHT HOURS NEEDED FOR PAIN . DO NOT EXCEED FOUR (4) TABLETS A DAY. [facility] medroxyprog esterone 10 mg tablet TAKE ONE (1) TABLET BY MOUTH TWICE A DAY FOR 5 DAYS. medroxyprog esterone 10 mg tablet TAKE ONE (1) TABLET BY MOUTH TWICE A DAY FOR 5 DAYS. No medroxypro gesterone 10 mg tablet TAKE ONE (1) TABLET BY MOUTH TWICE A DAY FOR 5 DAYS. [facility] misoprostol 200 mcg tablet TAKE ONE (1) TABLET(S) BY MOUTH THE NIGHT PRIOR TO PROCEDURE AND ONE (1) TABLET MORNING OF PROCEDURE. misoprostol 200 mcg tablet TAKE ONE (1) TABLET(S) BY MOUTH THE NIGHT PRIOR TO PROCEDURE AND ONE (1) TABLET MORNING OF PROCEDURE. No misoprosto l 200 mcg tablet TAKE ONE (1) TABLET(S) BY MOUTH THE NIGHT PRIOR TO PROCEDURE AND ONE (1) TABLET MORNING OF PROCEDURE. [facility] ondansetron HCl 4 mg tablet TAKE ONE (1) TABLET(S) BY MOUTH ONCE A DAY FOR NAUSEA. ondansetron HCl 4 mg tablet TAKE ONE (1) TABLET(S) BY MOUTH ONCE A DAY FOR NAUSEA. No ondansetro n HCl 4 mg tablet TAKE ONE (1) TABLET(S) BY MOUTH ONCE A DAY FOR NAUSEA. [facility] pantoprazol e 40 mg tablet,[place] yed release TAKE ONE (1) TABLET 1/2 TO 1 HOUR BEFORE MORNING MEAL ONCE A DAY. pantoprazol e 40 mg tablet,[place] yed release TAKE ONE (1) TABLET 1/2 TO 1 HOUR BEFORE MORNING MEAL ONCE A DAY. No pantoprazo le 40 mg tablet,[place] ayed release TAKE ONE (1) TABLET 1/2 TO 1 HOUR BEFORE MORNING MEAL ONCE A DAY. [facility] Reglan 10 mg tablet Take 1 tablet every 6 hours by oral route as needed, for nausea. Reglan 10 mg tablet Take 1 tablet every 6 hours by oral route as needed, for nausea. No 1 Q6H Reglan 10 mg tablet Take 1 tablet every 6 hours by oral route as needed, for nausea. [facility] sucralfate 100 mg/mL oral suspension TAKE 10 ML(S) BY MOUTH 1 HOUR BEFORE MEALS AND AT BEDTIME ON AN EMPTY STOMACH FOUR TIMES A DAY NEEDED. sucralfate 100 mg/mL oral suspension TAKE 10 ML(S) BY MOUTH 1 HOUR BEFORE MEALS AND AT BEDTIME ON AN EMPTY STOMACH FOUR TIMES A DAY NEEDED. No sucralfate 100 mg/mL oral suspension TAKE 10 ML(S) BY MOUTH 1 HOUR BEFORE MEALS AND AT BEDTIME ON AN EMPTY STOMACH FOUR TIMES A DAY NEEDED. [facility] cefuroxime axetil 250 mg tablet Take 1 tablet every 12 hours by oral route for 5 days. cefuroxime axetil 250 mg tablet Take 1 tablet every 12 hours by oral route for 5 days. No 1 Q12H cefuroxime axetil 250 mg tablet Take 1 tablet every 12 hours by oral route for 5 days. [facility] Immunizations Ordered Immunization Name Filled Immunization Name Date Status Comments Source DTaP, unspecified formulation DTaP, unspecified formulation Unknown Completed [facility] IPV IPV Unknown Completed [facility] Hib (PRP-T) Hib (PRP-T) Unknown Completed [facility] Hep B, adolescent or pediatric Hep B, adolescent or pediatric Unknown Completed [facility] COVID-19, mRNA, LNP-S, PF, 30 mcg/0.3 mL dose, tracey-sucrose ([employer]) COVID-19, mRNA, LNP-S, PF, 30 mcg/0.3 mL dose, tracey-sucrose ([employer]) Unknown Completed [facility] COVID-19 vaccine, vector-nr, rS-Ad26, PF, 0.5 mL ([facility]) COVID-19 vaccine, vector-nr, rS-Ad26, PF, 0.5 mL ([employer]) Unknown Completed [facility] HPV, quadrivalent HPV, quadrivalent Unknown Completed [facility] Tdap Tdap Unknown Completed [facility] meningococcal MCV4P meningococcal MCV4P Unknown Completed [facility] varicella varicella Unknown Completed [facility] Hep A, ped/adol, 2 dose Hep A, ped/adol, 2 dose Unknown Completed [facility] pneumococcal conjugate PCV 7 pneumococcal conjugate PCV 7 Unknown Completed [facility] MMR MMR Unknown Completed [facility] Vital Signs Vital Name Observation Time Observation Value Comments S ource BP Systolic 2025-06-23 00:00:00 123 mm[Hg] [facility] BMI (Body Mass Index) 2025-06-23 00:00:00 35.9 kg/m2 [facility] Body Weight 2025-06-23 00:00:00 184 [lb_av] [facility] BP Diastolic 2025-06-23 00:00:00 84 mm[Hg] [facility] Height 2025-06-23 00:00:00 60 [in_i] [facility] BP Diastolic 2025-05-15 00:00:00 65 mm[Hg] [facility] BMI (Body Mass Index) 2025-05-15 00:00:00 37.2 kg/m2 [facility] Height 2025-05-15 00:00:00 60 [in_i] [facility] BP Systolic 2025-05-15 00:00:00 101 mm[Hg] [facility] Body Weight 2025-05-15 00:00:00 190.6 [lb_av] [facility] Height 2025-04-27 00:00:00 60 [in_i] [facility] Height 2025-04-14 00:00:00 60 [in_i] [facility] BP Systolic 2025-04-14 00:00:00 104 mm[Hg] [facility] BP Diastolic 2025-04-14 00:00:00 62 mm[Hg] [facility] Body Weight 2025-04-14 00:00:00 190.6 [lb_av] [facility] BMI (Body Mass Index) 2025-04-14 00:00:00 37.2 kg/m2 [facility] weight 2025-04-06 08:30:00 187.0 [lb_av] [facility] temperature 2025-04-06 08:30:00 97.6 [degF] Com mon [facility] oximetry 2025-04-06 08:30:00 98 % Commo n [facility] respiratory rate 2025-04-06 08:30:00 16 /min [facility] blood pressure systolic 2025-04-06 08:30:00 122 mm[Hg] [facility] blood pressure diastolic 2025-04-06 08:30:00 74 mm[Hg] [facility] Systolic blood pressure 2023-12-06 19:36:00 113 mm[Hg] [facility] Diastolic blood pressure 2023-12-06 19:36:00 85 mm[Hg] [facility] Heart rate 2023-12-06 19:36:00 103 /min [facility] Body temperature 2023-12-06 19:36:00 37.11 Susan [facility] Respiratory rate 2023-12-06 19:36:00 22 /min [facility] Body height 2023-12-06 19:36:00 152.4 cm [facility] Body weight 2023-12-06 19:36:00 83.598 kg [facility] BMI 2023-12-06 19:36:00 35.99 kg/m2 [facility] Oxygen saturation in Arterial blood by Pulse oximetry 2023-12-06 19:36:00 100 /min [place] [facility] Procedures Procedure Date / Time Performed Performing Clinician Source ULTRASOUND, UTERUS REAL TIME WITH IMAGE DOCUMENTAITON, TRANSVAGINAL 2025-06-23 00:00:00 [facility] Hysteroscopy 2025-06-12 00:00:00 [facility] US TRANSVAGINAL 2025-04-17 00:00:00 [facility] NOTICE OF PRIVACY PRACTICES 2023-12-06 20:07:51 Doctor Unassigned, [place] [facility] CONSENT/REFUSAL FOR DIAGNOSIS AND TREATMENT 2023-12-06 20:07:19 Doctor Unassigned, [place] [facility] ASSIGNMENT OF BENEFITS 2023-12-06 19:46:59 Docto r Unassigned, [place] [facility] NOTICE OF PRIVACY PRACTICES 2023-12-06 19:29:37 Doctor Unassigned, [place] [facility] NOTICE OF PRIVACY PRACTICES 2023-12-06 19:28:28 Doctor Unassigned, [place] [facility] Appendectomy [facility] Encounters Start Date/Time End Date/Time Encounter Type Admission Type Attending Clinicians Care Facility Care Department Encounter ID Source 2025-06-23 09:00:00 2025-06-23 09:00:00 Outpatient DERREK SULLIVAN [facility] [id number] [facility] 2025-06-23 00:00:00 2025-06-23 00:00:00 Derrek Dutton MD: [address] [place] [address], [address], [place] [address] , Ph. [phone] [facility] [id number] 0923 [facility] 2025-05-26 00:00:00 2025-05-26 00:00:00 Yana sAkew MD: [address], [place] [address] , Ph. [facility] GC_GCBZW_[facility]* [id number] [facility] 2025-05-25 00:00:00 2025-05-25 00:00:00 (TEL) STLMLC STLMLC [id number] [facility] 2025-05-15 00:00:00 2025-05-15 00:00:00 Yana Askew MD: [address], [place] [address] , Ph. [facility] GC[facility]GCBZW_[facility]* [id number] [facility] 2025-05-07 00:00:00 2025-05-07 00:00:00 OFFICE VISIT ESTAB PT LEVEL 3 STLMLC STLMLC [id number] [facility] 2025-05-07 00:00:00 2025-05-07 00:00:00 (TEL) STLMLC STLMLC [id number] [facility] 2025-04-27 00:00:00 2025-04-27 00:00:00 SILAS Hong: [address], [place] [address] , Ph. [facility] GC[facility]GCBZW_[facility]* [id number] [facility] 2025-04-17 00:00:00 2025-04-17 00:00:00 Yana Askew MD: [address], [place] [address] , Ph. [facility] - GC_GCBZW_Idalia iyer Imtiaz* [id number] [facility] 2025-04-14 00:00:00 2025-04-14 00:00:00 Billie Watters ACCOUNT SUPPORT SPECIALIST: [address], [place] [address] , Ph. [facility] - GC_GCBZW_Idalia iyer Imtiaz* [id number] [facility] 2025-04-06 00:00:00 2025-04-06 00:00:00 (SEWING INSPECTOR) New Patient [facility] [id number] [facility] 2023-12-06 13:39:00 2023-12-06 14:15:00 Emergency X MARINE HARRISON [facility] ERT [id number] [facility] 2023-12-06 13:39:00 2023-12-06 14:15:00 Emergency Marine Harrison [facility] [id number] [facility] Results Test Description Test Time Test Comments Results Result Co mments Source [facility] [Type] in [id number] 00:00:00* Test Item Value Reference Range Interpretation Comme nts ABO group [Type] in Blood (t est code = 883-9) O Rh [Type] in Blood (test cod e = 63543-3) Positive [facility] tests - Meaningful Use [id number] 00:00:00 * Test Item Value Reference Range Interpretation Comme nts HIV 1+2 Ab+HIV1 p24 Ag [Presence] in Serum or Plasma by Immunoassay (test code = 74632-0) Non Reactive non reactive [facility] virus IgG Ab [Units/volume] in Serum or Plasma by [id number] 00:00:00* Test Item Value Reference Range Interpretation Comme nts Rubella virus IgG Ab [Units/volume] in Serum or Plasma by Immunoassay (test code = 5334-8) 1.48 index See_Comment [Automated [employer] ge] The system which generated this result transmitted reference range: immune >0.99. The reference range was not used to interpret this result as normal/abnormal. [facility] antibody screen [Presence] in Serum or Plasma 2025-06-24 00:00:00* Test Item Value Reference Range Interpretation Comme [facility] Blood group antibody screen [Presence] in Serum or Plasma (test code = 890-4) Negative negative [facility] Ab [Presence] in Serum by [id number] 00:00:00* Test Item Value Reference Range Interpretation Comme [facility] Reagin Ab [Presence] in Seru m by RPR (test code = 97069-6) Non Reactive non reactive [facility]Hepatitis B virus surface Ag [Presence] in Serum or Plasma by [id number] 00:00:00* Test Item Value Reference Range Interpretation Comme [facility] Hepatitis B virus surface Ag [Presence] in Serum or Plasma by Immunoassay (test code = 5196-1) Negative negative [facility], LB + CT/NG/TV + reflex HR [id number] 00:00:00* Test Item Value Reference Range Interpretation Comme [facility] cytologic interpretation (te st code = cytologic interpretation) NORMAL CT/NG (test code = CT/NG) NORMAL trichomonas vaginalis addon - swab (test code = trichomonas vaginalis addon - swab) NORMAL [facility]all[facility] blood [id number] 14:43:00* Test Item Value Reference Range Interpretation Comme [facility] labco blood collection (test code = [facility]corp blood collection) [facility], [id number] 13:44:11* Test Item Value Reference Range Interpretation Comme [facility] Leukocytes (test code = Leukocytes) Negative Nitrite (test code = Nitrite) negative Urobilinogen (test code = Urobilinogen) .2 Protein (test code = Protein) Negative pH (test code = pH) 5.5 Blood (test code = Blood) Non-Hemolyzed: Trace Specific [place] (test code = Specific [place]) 1.030 Ketone (test code = Ketone) Negative Bilirubin (test code = Bilirubin) Negative Glucose (test code = Glucose) Negative Appearance (test code = Appearance) Clear Color (test code = Color) Yellow [facility] test, [id number] 13:43:23* Test Item Value Reference Range Interpretation Comme nts Test (test code = Test) positive [facility] Pathology biopsy [id number] 00:00:00Clinical InformationPathologistA SourceA Gross DescriptionA Diagnosis[facility] test, [id number] 09:18:26* Test Item Value Reference Range Interpretation Comme nts HCG (test code = HCG) negative [facility] Medical[facility]IP[facility] [id number] 00:00:00* Test Item Value Reference Range Interpretation Comme nts ALBUMIN (test code = 1751-7) 4.2 g/dL See_Comment N [Automated [employer] ge] The system which generated this result transmitted reference range: 3.6-5.1 g/dL. The reference range was not used to interpret this result as normal/abnormal. ALBUMIN/GLOBULIN RATIO (test code = 1759-0) 1.7 (calc) See_Comment N [Automated message] The system which generated this result transmitted reference range: 1.0-2.5 (calc). The reference range was not used to interpret this result as normal/abnormal. ALKALINE PHOSPHATASE (test code = 6768-6) 65 U/L See_Comment N [Automated message] The system which generated this result transmitted reference range: 31-125 U/L. The reference range was not used to interpret this result as normal/abnormal. ALT (test code = 1742-6) 15 U/L See_Comment N [Automated messa ge] The system which generated this result transmitted reference range: 6-29 U/L. The reference range was not used to interpret this result as normal/abnormal. AST (test code = 1920-8) 13 U/L See_Comment N [Automated messa ge] The system which generated this result transmitted reference range: 10-30 U/L. The reference range was not used to interpret this result as normal/abnormal. BILIRUBIN, TOTAL (test code = 1975-2) 0.3 mg/dL See_Comment N [[employer]ated [employer]] The system which generated this result transmitted reference range: 0.2-1.2 mg/dL. The reference range was not used to interpret this result as normal/abnormal. BUN/CREATININE RATIO (test code = 3097-3) SEE NOTE: (calc) See_Comment [Automated message] The system which generated this result transmitted reference range: 6-22 (calc). The reference range was not used to interpret this result as normal/abnormal. CALCIUM (test code = 08635-2) 9.0 mg/dL See_Comment N [Automated messa ge] The system which generated this result transmitted reference range: 8.6-10.2 mg/dL. The reference range was not used to interpret this result as normal/abnormal. CARBON DIOXIDE (test code = 8-9) 25 mmol/L See_Comment N [Automated messa ge] The system which generated this result transmitted reference range: 20-32 mmol/L. The reference range was not used to interpret this result as normal/abnormal. CHLORIDE (test code = 2075-0) 106 mmol/L See_Comment N [Automated [employer] ge] The system which generated this result transmitted reference range: 98-110 mmol/L. The reference range was not used to interpret this result as normal/abnormal. CREATININE (test code = 2160-0) 0.62 mg/dL See_Comment N [Automated messa ge] The system which generated this result transmitted reference range: 0.50-0.96 mg/dL. The reference range was not used to interpret this result as normal/abnormal. GLOBULIN (test code = 64852-8) 2.5 g/dL (calc) See_Comment N [Automated message] The system which generated this result transmitted reference range: 1.9-3.7 g/dL (calc). The reference range was not used to interpret this result as normal/abnormal. GLUCOSE (test code = 2345-7) 85 mg/dL See_Comment N [Automated messa ge] The system which generated this result transmitted reference range: 65-99 mg/dL. The reference range was not used to interpret this result as normal/abnormal. POTASSIUM (test code = 2823-3) 3.9 mmol/L See_Comment N [Automated [employer] ge] The system which generated this result transmitted reference range: 3.5-5.3 mmol/L. The reference range was not used to interpret this result as normal/abnormal. PROTEIN, TOTAL (test code = 2885-2) 6.7 g/dL See_Comment N [Automated [employer]] The system which generated this result transmitted reference range: 6.1-8.1 g/dL. The reference range was not used to interpret this result as normal/abnormal. SODIUM (test code = 2951-2) 140 mmol/L See_Comment N [Automated [employer]] The system which generated this result transmitted reference range: 135-146 mmol/L. The reference range was not used to interpret this result as normal/abnormal. UREA NITROGEN (BUN) (test code = 3094-0) 15 mg/dL See_Comment N [Automated message] The system which generated this result transmitted reference range: 7-25 mg/dL. The reference range was not used to interpret this result as normal/abnormal. TSH W/REFLEX TO FT4 (test code = 3016-3) 1.40 mIU/L N HEMOGLOBIN A1c (test code = 4548-4) 5.4 % See_Comment N [Automated [employer]] The system which generated this result transmitted reference range: <5.7 %. The reference range was not used to interpret this result as normal/abnormal. CHOL/HDLC RATIO (test code = 9830-1) 5.1 (calc) See_Comment H [Automated [employer]] The system which generated this result transmitted reference range: <5.0 (calc). The reference range was not used to interpret this result as normal/abnormal. CHOLESTEROL, TOTAL (test code = 2093-3) 213 mg/dL See_Comment H [Automated message] The system which generated this result transmitted reference range: <200 mg/dL. The reference range was not used to interpret this result as normal/abnormal. HDL CHOLESTEROL (test code = 2085-9) 42 mg/dL See_Comment L [Automated [employer]] The system which generated this result transmitted reference range: > OR = 50 mg/dL. The reference range was not used to interpret this result as normal/abnormal. LDL-CHOLESTEROL (test code = 45097-2) 149 mg/dL (calc) H NON HDL CHOLESTEROL (test code = 03424-8) 171 mg/dL (calc) See_Comment H [Automated message] The system which generated this result transmitted reference range: <130 mg/dL (calc). The reference range was not used to interpret this result as normal/abnormal. TRIGLYCERIDES (test code = 2571-8) 108 mg/dL See_Comment N [Automated messa ge] The system which generated this result transmitted reference range: <150 mg/dL. The reference range was not used to interpret this result as normal/abnormal. Follitropin [Units/volume] in Serum or [id number] 00:00:00* Test Item Value Reference Range Interpretation Comme nts FSH (test code = FSH) 2.1 mIU/mL [facility] MedicalProlactin [Mass/volume] in Serum or [id number] 00:00:00* Test Item Value Reference Range Interpretation Comme nts prolactin (test code = prolactin) 32.1 NG/mL 4.8-23.3 H [facility] MedicalEstradiol (E2) [Mass/volume] in Serum or [id number] 00:00:00 * Test Item Value Reference Range Interpretation Comme nts estradiol (test code = estradiol) 125.0 pg/mL 6.1-91.9 H [facility] MedicalChoriogonadotropin.beta subunit [Units/volume] in Serum or Plasma 2025-04-20 00:00:00* Test Item Value Reference Range Interpretation Comme nts HCG (test code = HCG) < 5 [facility] Medicaltrichomonas vaginalis swab (swhl) ([id number]) 2025-04-16 00:00:00 * Test Item Value Reference Range Interpretation Comme nts trichomonas vaginalis swab ( test code = trichomonas vaginalis swab) TRICH NEG negative [facility] MedicalChlamydia trachomatis and Neisseria gonorrhoeae rRNA panel - Specimen by SHAHBAZ with probe [id number] 00:00:00* Test Item Value Reference Range Interpretation Comme nts aptima combo 2 swab (CT) (te st code = aptima combo 2 swab (CT)) CT NEG negative aptima combo 2 swab (GC) (te st code = aptima combo 2 swab (GC)) GC NEG negative [facility] Medicaligp,ctng,rfxapthpvall,16/18,[id number] 00:00:00* Test Item Value Reference Range Interpretation Comme nts gynecological body site cerv ix : Y or N (test code = gynecological body site cervix : Y or N) Y sourc of specimen endocervix : Y or N (test code = sourc of specimen endocervix : Y or N) Y yisel. method: brush/spatula : Y or N (test code = yisel. method: brush/spatula : Y or N) Y igp,ctng,rfxapthpvall,16/18, 45 (test code = igp,ctng,rfxapthpvall,1618,45) NIL chlamydia, nuc. acid amp (te st code = chlamydia, nuc. acid amp) NEGATIVE negative gonococcus, nuc. acid amp (t est code = gonococcus, nuc. acid amp) NEGATIVE negative [facility] Medicalpregnancy test, [id number] 15:30:53* Test Item Value Reference Range Interpretation Comme nts HCG (test code = HCG) negative [facility] MedicalPREGNANCY TEST [id number] 00:00:00RESULTSPREGNANCY TEST URINE 2025-04-06 00:00:00RESULTSPREGNANCY TEST [id number] 00:00:00RESULTS TEST [id number] 00:00:00RESULTSPREGNANCY TEST [id number] 00:00:00RESULTSPREGNANCY TEST [id number] 00:00:00RESULTSH. PYLORI (BREATH) 2022-03-25 12:46:36* Test Item Value Reference Range Interpretation Comme nts H. PYLORI (BREATH) (test code = 95141) NEGATIVE NEGATIVE UNLESS OTHER NICOLE INDICATED, ALL TESTING PERFORMED [facility] [address] [place] [address] MAINTAINABILITY ENGINEER: LOPEZ LEMONS M.D. CLIA NUMBER [id number] [place] [id number] Notes Date/Time Note Provider Source 2023-12-06 13:53:07 [...] with steady gait, in no apparent distress, EATION SUPERVISOR [facility] 2023-12-06 13:36:08 Patient presents with a lump to the left posterior shoulder that is soft and a skin tag on the posterior right knee that has gotten larger. EATION SUPERVISOR Gregoria Mauro RN [facility] 2023-12-06 13:26:00 Images from the original note were not included. [facility] Emergency Department Note Patient Name: Jacky Diaz Date of : 1990 33 year [...] Comments 12/06/23 1329 Medical Screening Begins MARINE HARRISON MD -- 12/06/23 1329 First Provider Evaluation MARINE HARRISON MD -- ED COURSE Diagnosis/Impression as of [...] on file Follow-up: Electronically signed by: Marine Harrison MD 12/06/23 1346 [facility]
[2025-07-04] MEDS ORDERED: Ringers Lactate 1,000 ML IV ONE (18:21)
[2025-07-04] MEDS ORDERED: DIPHENHYDRAMINE 50 MG/ML VIAL ONE (18:21)
[2025-07-04] MEDS ORDERED: METOCLOPRAMIDE 10 MG/2mL INJ ONE (18:21)
[2025-07-04 18:35] LABS: Absolute Lymphocytes (CBC) 1.6 K/uL (0.7-4.9); Hematocrit 38.0 % (36.0-45.0); Hemoglobin 12.9 g/dL (12.0-15.0); MCH 28.0 pg (27.0-35.0); MCHC 34.0 g/dL (32.0-36.0); MCV 82.4 fL (80-100); MPV 8.0 fL (7.6-11.3); Nucleated RBC Absolute Count 0.0 (0-0); Nucleated Red Blood Cells % 0.0 % (0-0); RBC Red Blood Cell Count 4.61 M/uL (3.86-4.86); White Blood Count 9.60 thou/uL (4.3-10.9)
[2025-07-04 19:07] LABS: Urine Microscopic Reflex YN NO UMIC
[2025-07-04 19:09] LABS: Anion Gap 9.1 mEq/L (5.0-15.0); BUN Blood Urea Nitrogen 9.0 mg/dL (7-18); Glucose Level 100.0 mg/dL (74-106); HCG, Quantitative 57716.0 mIU/mL (1-3)
[2025-07-04 19:15] LABS: Potassium 4.1 mEq/L (3.5-5.1)
--- NOTE | 2025-07-04 20:32 | RAD REPORT ---
EXAMINATION: US FIRST TRIMESTER TRANSVAGINAL WITH DOPPLER CLINICAL INDICATION: with pelvic pain TECHNIQUE: Real-time obstetrical ultrasonography of the maternal pelvis and first trimester was performed transvaginally. Color and spectral Doppler evaluation of the ovaries was performed. COMPARISON: No prior exam. FINDINGS: The uterus measures 10 x 6 x 7 cm A gestational sac is present within the endometrium. Within this is a pole crown rump length 1. 2 cm. Activity 151 bpm. Right ovary normal in size and echotexture Left ovary normal not seen secondary to overlying bowel gas. Right and left adnexa unremarkable No significant free fluid IMPRESSION: Single live intrauterine with an estimated gestational age 7 weeks 3 days MELA 02/17/2026
--- NOTE | 2025-07-04 21:10 | ER ---
Nurse's Notes [facility] Name: Jacky Lopez Age: 25 yrs Sex: Female : 2000 Arrival Date: 07/04/2025 Time: 17:55 Bed 4 Private MD: Diagnosis: Other specified related conditions, first trimester;Nausea with vomiting, unspecified Presentation: 07/04 18:04 Chief complaint: Patient states: 7 weeks . n/v and unable to tolerate food and db fluids for about a week now. Feeling dizzy and "shakey". . Coronavirus screen: Vaccine status: Patient reports receiving the 2nd dose of the covid vaccine. Ebola Screen: No symptoms or risks identified at this time. Initial Sepsis Screen: Does the patient meet any 2 criteria? No. Patient's initial sepsis screen is negative. Does the patient have a suspected source of infection? No. Patient's initial sepsis screen is negative. Risk Assessment: Do you want to hurt yourself or someone else? Patient reports no desire to harm self or others. Onset of symptoms is unknown. 18:04 Method Of Arrival: Ambulatory db 18:04 Acuity: GENE 3 db MORNING SHOW HOST: 21:29 Verified cc6 Historical: - Allergies: 18:06 lamotrigine; db 18:06 Latex, Natural Rubber; db - PMHx: 18:06 Anxiety; Depression; bradycardia (Unknown); anemic (Unknown); db - PSHx: 18:06 Appendectomy; db - Immunization history:: Adult Immunizations up to date. - Infectious Disease History:: Denies. - Social history:: Smoking status: Patient denies any tobacco usage or history of. Screenin:00 [facility] ED Fall Risk Assessment (Adult) History of falling in the last 3 months, nh2 including since admission No falls in past 3 months (0 pts) Confusion or Disorientation No (0 pts) Intoxicated or Sedated No (0 pts) Impaired Gait No (0 pts) Mobility Assist Device Used No (0 pt) Altered Elimination No (0 pt) Score/Fall Risk Level 0 - 2 = Low Risk Oriented to surroundings, Maintained a safe environment, Educated pt \\T\\ family on fall prevention, incl call for assistance when getting out of bed, Assessed \\T\\ reinforced patient's understanding of fall precautions. Abuse screen: Denies threats or abuse. Denies injuries from another. Nutritional screening: No deficits noted. Tuberculosis screening: No symptoms or risk factors identified. Assessment: 18:00 General: Appears uncomfortable, Behavior is calm, cooperative, appropriate for age. nh2 Pain: Denies pain. Neuro: Level of Consciousness is awake, alert, obeys commands, Oriented to person, place, time, situation, Appropriate for age Reports dizziness, Denies headache. Cardiovascular: Denies chest pain, Patient's skin is warm and dry. Respiratory: Airway is patent Trachea midline Respiratory effort is even, unlabored, Respiratory pattern is regular, symmetrical, Denies cough, shortness of breath. GI: Abdomen is round non-distended, Bowel sounds present X 4 quads. Abd is soft and non tender X 4 quads. Reports intolerance of fluids, intolerance of food, nausea. : No signs and/or symptoms were reported regarding the genitourinary system. Denies burning with urination. EENT: No signs and/or symptoms were reported regarding the EENT system. Derm: Skin is intact, is healthy with good turgor, Skin is pink, warm \\T\\ dry. Musculoskeletal: Circulation, motion, and sensation intact. Range of motion: intact in all extremities. 19:00 Reassessment: Patient and/or family updated on plan of care and expected duration. Pain nh2 level reassessed. Patient is alert, oriented x 3, equal unlabored respirations, skin warm/dry/pink. Patient denies pain at this time. Vital Signs: 18:04 BP 116 / 76; Pulse 85; Resp 17; Temp 98.2; Pulse Ox 100% ; Weight 82.55 kg; Height 5 db ft. 0 in. ; 18:30 BP 116 / 82; Pulse 81; Resp 18; Temp 98.6(O); Pulse Ox 100% on R/A; nh2 19:15 BP 96 / 67; Pulse 82; Resp 16; Pulse Ox 100% on R/A; cc6 20:45 BP 91 / 64; Pulse 86; Resp 18; Pulse Ox 100% on R/A; cc6 21:28 BP 108 / 72; Pulse 96; Resp 17; Pulse Ox 100% on R/A; cc6 18:04 Body Mass Index 35.54 (82.55 kg, 152.4 cm) db ED Course: 17:58 Patient arrived in ED. cj3 17:58 Keaton Ramirez [facility]-C [facility] cp 17:58 Cira Lutz MD is Attending Physician. cp 18:06 Triage completed. db 18:06 Arm band placed on Patient placed in an exam room. db 18:15 Oc Sen Jr, STANTON is Primary Nurse. nh2 18:15 Patient has correct armband on for positive identification. Bed in low position. Call nh2 light in reach. Side rails up X 1. Provided Education on: using call light for assistance. 18:25 Initial lab(s) drawn, by me, sent to lab. Inserted saline lock: 20 gauge in right hand, aa5 using aseptic technique. Blood collected. Flushed with 10 mL NS. 19:00 Report given to STANTON Chambers and STANTON Anaya. nh2 19:17 No provider procedures requiring assistance completed. nh2 20:18 US Transvaginal Ob In Process Unspecified. EDMS 21:29 IV discontinued, intact, bleeding controlled, No redness/swelling at site. Pressure cc6 dressing applied. Administered Medications: 18:28 Drug: Ringers - Lactated Ringers Solution IV 1000 ml IV at calculated rate bolus; to be nh2 given as a bolus over 60 minutes Route: IV; Rate: calculated rate; Site: right hand; 21:30 Follow up: Response: No adverse reaction; IV Status: Completed infusion; IV Intake: cc6 1000ml 18:28 Drug: metoCLOPramide IVP 10 mg IVP once; over 1 to 2 minutes Route: IVP; Site: right nh2 hand; 19:13 Follow up: Response: No adverse reaction; Nausea is decreased nh2 18:28 Drug: diphenhydrAMINE IVP 25 mg IVP once Route: IVP; Site: right hand; nh2 19:13 Follow up: Response: No adverse reaction nh2 Medication: 19:16 VIS not applicable for this client. nh2 Intake: 21:30 IV: 1000ml; Total: 1000ml. cc6 Outcome: 21:10 Discharge ordered by . cp 21:29 Discharged to home cc6 21:29 Condition: stable 21:29 Discharge instructions given to patient, Instructed on discharge instructions, follow up and referral plans. medication usage, Demonstrated understanding of instructions, follow-up care, medications, Prescriptions given X 2, 21:30 Patient left the ED. cc6 Signatures: Dispatcher [employer] Salena Santos, RN RN aa5 Keaton Ramirez, DAVIN PAEricka Delacruz cp RN RN db Trish Torres RN RN cc6 Mckinley Marroquin, Oc RN RN nh2 Sri Gilbert cj3 Corrections: (The following items were deleted from the chart) 18:51 18:30 Inserted saline lock: 20 gauge in right hand, using aseptic technique. Blood aa5 collected. Flushed with 10 mL NS aa5 18:51 18:30 Initial lab(s) drawn, by me, sent to lab. aa5 aa5 19:18 18:00 GI: Abdomen is round non-distended, Reports intolerance of fluids, intolerance of nh2 food, nausea, nh2 19:18 18:30 BP 120 / 84; Pulse 81bpm; Resp 18bpm; Pulse Ox 100% RA; Temp 98.6F Oral; nh2 nh2
--- NOTE | 2025-07-04 21:10 | EDPHYS ---
Physician Documentation [facility] Name: Jacky Lopez Age: 25 yrs Sex: Female : 2000 Arrival Date: 07/04/2025 Time: 17:55 Bed 4 Private MD: ED Physician Cira Lutz HPI: 07/04 18:15 This 25 yrs old Female presents to ER via Ambulatory with complaints of Nausea.cp 18:15 The patient presents to the emergency department with nausea, that is moderate, cp vomiting, that is intermittent. 18:15 Onset: The symptoms/episode began/occurred gradually. Possible causes: . cp Associated signs and symptoms: Pertinent negatives: abdominal pain, constipation, diarrhea, fever, active vomiting, vaginal bleeding. Severity of symptoms: in the emergency department the symptoms are unchanged despite home interventions. patient is , approximately 7 weeks . MICROFILM OPERATOR: 21:29 Verified cc6 Historical: - Allergies: 18:06 lamotrigine; db 18:06 Latex, Natural Rubber; db - PMHx: 18:06 Anxiety; Depression; bradycardia (Unknown); anemic (Unknown); db - PSHx: 18:06 Appendectomy; db - Immunization history:: Adult Immunizations up to date. - Infectious Disease History:: Denies. - Social history:: Smoking status: Patient denies any tobacco usage or history of. ROS: 18:20 Constitutional: Positive for poor PO intake, Negative for body aches, chills, fever, cp 18:20 Eyes: Negative for injury, pain, redness, and discharge, cp 18:20 Respiratory: Negative for cough, shortness of breath, wheezing, 18:20 Abdomen/GI: Positive for nausea and vomiting, Negative for abdominal pain, 18:20 : Negative for urinary symptoms, vaginal bleeding, 18:20 Neuro: Positive for dizziness, 18:20 All other systems are negative, Exam: 18:25 Constitutional: The patient appears in no acute distress, alert, awake, non-toxic, well cp developed, well nourished, 18:25 Head/Face: Normocephalic, atraumatic. cp 18:25 Eyes: Periorbital structures: appear normal, Conjunctiva: normal, no exudate, no injection, Sclera: no appreciated abnormality, Lids and lashes: appear normal, bilaterally, 18:25 ENT: External ear(s): are unremarkable, Nose: is normal, Mouth: is normal, Posterior pharynx: Airway: no evidence of obstruction, patent, 18:25 Chest/axilla: Inspection: normal, 18:25 Cardiovascular: Rate: normal, Rhythm: regular, 18:25 Respiratory: the patient does not display signs of respiratory distress, Respirations: normal, no use of accessory muscles, no retractions, labored breathing, is not present, Breath sounds: are clear throughout, no decreased breath sounds, no stridor, no wheezing, 18:25 Abdomen/GI: Inspection: abdomen appears normal, Bowel sounds: active, all quadrants, Palpation: abdomen is soft and non-tender, in all quadrants, 18:25 Back: pain, is absent, ROM is normal, 18:25 Neuro: Orientation: to person, place \T\ time. Mentation: is normal, Vital Signs: 18:04 BP 116 / 76; Pulse 85; Resp 17; Temp 98.2; Pulse Ox 100% ; Weight 82.55 kg; Height 5 db ft. 0 in. ; 18:30 BP 116 / 82; Pulse 81; Resp 18; Temp 98.6(O); Pulse Ox 100% on R/A; nh2 19:15 BP 96 / 67; Pulse 82; Resp 16; Pulse Ox 100% on R/A; cc6 20:45 BP 91 / 64; Pulse 86; Resp 18; Pulse Ox 100% on R/A; cc6 21:28 BP 108 / 72; Pulse 96; Resp 17; Pulse Ox 100% on R/A; cc6 18:04 Body Mass Index 35.54 (82.55 kg, 152.4 cm) db MDM: 18:08 Medical Screening Exam initiated cp 21:10 Data reviewed: vital signs, nurses notes, lab test result(s), radiologic studies, cp ultrasound. 21:10 Differential diagnosis: gastritis, viral gastroenteritis, gastroenteritis, dehydration, cp electrolyte abnormality. I considered the following discharge prescriptions or medication management in the emergency department Medications were administered in the Emergency Department. See MAR. Counseling: I had a detailed discussion with the patient and/or guardian regarding the historical points, exam findings, and any diagnostic results supporting the discharge/admit diagnosis, lab results, radiology results, the need for outpatient follow up, an OB/Gyne specialist, to return to the emergency department if symptoms worsen or persist or if there are any questions or concerns that arise at home. Response to treatment: the patient's symptoms have markedly improved after treatment, and as a result, I will discharge patient. 07/04 18:12 Order name: Abo/rh Typing cp 07/04 18:12 Order name: Basic Metabolic Panel; Complete Time: 19:19 cp 07/04 18:12 Order name: CBC with Diff; Complete Time: 18:46 cp 07/04 18:46 Interpretation: Normal except: MARTINA% 75.6. cp 07/04 18:12 Order name: Test, Urine; Complete Time: 19:19 cp 07/04 18:12 Order name: Quantitative Hcg; Complete Time: 19:19 cp 07/04 18:12 Order name: UA Rfx Samuel Cult if indicated; Complete Time: 19:19 cp 07/04 19:20 Order name: US Transvaginal Ob; Complete Time: 20:57 cp 07/04 20:58 Interpretation: Report reviewed. 07/04 18:12 Order name: IV Saline Lock; Complete Time: 18:51 cp 07/04 18:12 Order name: Labs collected and sent; Complete Time: 18:51 cp 07/04 18:12 Order name: NPO; Complete Time: 18:51 cp 07/04 20:00 Order name: PO challenge; Complete Time: 21:02 cp Administered Medications: 18:28 Drug: Ringers - Lactated Ringers Solution IV 1000 ml IV at calculated rate bolus; to be nh2 given as a bolus over 60 minutes Route: IV; Rate: calculated rate; Site: right hand; 21:30 Follow up: Response: No adverse reaction; IV Status: Completed infusion; IV Intake: cc6 1000ml 18:28 Drug: metoCLOPramide IVP 10 mg IVP once; over 1 to 2 minutes Route: IVP; Site: right nh2 hand; 19:13 Follow up: Response: No adverse reaction; Nausea is decreased nh2 18:28 Drug: diphenhydrAMINE IVP 25 mg IVP once Route: IVP; Site: right hand; nh2 19:13 Follow up: Response: No adverse reaction nh2 Disposition Summary: 07/04/25 21:10 Discharge Ordered Notes: Location: Home cp Problem: new cp Symptoms: have improved cp Condition: Stable cp Diagnosis - Other specified related conditions, first trimester cp - Nausea with vomiting, unspecified cp Followup: cp - With: Private Physician - When: 2 - 3 days - Reason: Worsening of condition Discharge Instructions: - Discharge Summary Sheet cp - Nausea and Vomiting, Adult cp - First Trimester of cp - Warning Signs During cp Forms: - Medication Reconciliation Form cp - Antibiotic Education cp - Prescription Opioid Use cp - Patient Portal Instructions cp - Leadership Thank You Letter cp Prescriptions: - promethazine 50 mg Rectal suppository - insert 0.5 suppository RECTAL route every 6 hours as needed for cp nausea/vomiting; 12 suppository; Refills: 0, Product Selection Permitted - Zofran 4 mg Oral Tablet - take 1 tablet ORAL route every 12 hours As needed; 20 tablet; Refills: 0, cp Product Selection Permitted Signatures: Dispatcher [employer] EDKeaton Granados, PA-C PA-C cp Ericka Wynn RN RN db Trish Torres RN RN cc6 Oc Sen Jr RN RN nh2
[2025-07-04 21:34] VITALS: O2SAT 100
[2025-07-04 21:36] VITALS: TEMP 98.6
[2025-07-04 21:41] VITALS: BP 108/72
== END 2025-07-04 21:30 | disposition home or self-care (01) ==
LOC: ER 17:55
DX: O21.9 Vomiting of pregnancy, unspecified (principal); Z3A.01 Less than 8 weeks gestation of pregnancy
CPT/HCPCS: 96365; 85025; 80048; 36415; 86900; 81025; 86901; 84702; 81003; 76817; 96375; 99284; 96366; J2765; J1200; J7120

== ENCOUNTER 2025-07-22 18:04 | Emergency (ER) | payer OTHER ==
[2025-07-22] MEDS ORDERED: ONDANSETRON 4 MG/2 ML VIAL ONE (19:36)
[2025-07-22] MEDS ORDERED: NA CHLORIDE 0.9% 1,000 ML ONE (19:36)
[2025-07-22 19:45] LABS: Absolute Lymphocytes (CBC) 2.4 K/uL (0.7-4.9); Hematocrit 38.4 % (36.0-45.0); Hemoglobin 13.1 g/dL (12.0-15.0); MCH 28.1 pg (27.0-35.0); MCHC 34.1 g/dL (32.0-36.0); MCV 82.3 fL (80-100); MPV 7.8 fL (7.6-11.3); Nucleated RBC Absolute Count 0.0 (0-0); Nucleated Red Blood Cells % 0.0 % (0-0); RBC Red Blood Cell Count 4.66 M/uL (3.86-4.86); White Blood Count 8.30 thou/uL (4.3-10.9)
[2025-07-22 19:51] LABS: Sqamous Epithelial >50 /HPF (None Seen); Urine Crystals Unidentified Few /HPF (None Seen); Urine Culture Reflex Order REFLEXED; Urine Microscopic Reflex YN ORDER UMIC; Urine Yeast (Budding) Occasional /HPF (None Seen)
[2025-07-22 20:00] LABS: Anion Gap 9.2 mEq/L (5.0-15.0); BUN Blood Urea Nitrogen 7.0 mg/dL (7-18); Glucose Level 70.0 mg/dL (74-106); Potassium 3.2 mEq/L (3.5-5.1)
[2025-07-22] MEDS ORDERED: POTASSIUM CL SA 10 MEQ TAB PO ONE (20:25)
--- NOTE | 2025-07-22 21:07 | EDPHYS ---
Physician Documentation [facility] Name: Jacky Lopez Age: 25 yrs Sex: Female : 2000 Arrival Date: 07/22/2025 Time: 18:04 Bed 17 Private MD: ED Physician Toño Cardenas HPI: 07/22 19:11 This 25 yrs old Female presents to ER via Unassigned with complaints of kb nausea, vomiting. 19:11 Pt is a 25 year old female who presents for nausea and vomiting that started 3 days kb ago. States she hasn't been able to keep anything down and feels dehydrated. Pt is 10 weeks, 1 day . A1. . NURSING INFORMATICS CLINICAL ANALYST: 19:13 2, Full Term 0, Premature 0, 0, Living 0, LMP 04/22/2025, vc1 Verified, EDC 01/27/2026, Gestational age from LMP: 13 weeks 1 day, Pt states 10 weeks 1 day Historical: - Allergies: 19:13 lamotrigine; vc1 19:13 Latex; vc1 - Home Meds: 19:13 None [Active]; vc1 - PMHx: 19:13 anemic (Unknown); Anxiety; BRADYCARDIA (Unknown); Depression; vc1 - PSHx: 19:13 Appendectomy; vc1 - Immunization history:: Client reports receiving the 2nd dose of the Covid vaccine, Flu vaccine is not up to date. - Infectious Disease History:: Denies. - Social history:: Smoking status: Patient/guardian denies using tobacco, Stopped _ months ago 5. ROS: 19:12 Constitutional: As per HPI kb Exam: 19:12 Constitutional: This is a well developed, well nourished patient who is awake, alert, kb and in no acute distress. Head/Face: Normocephalic, atraumatic. ENT: Moist Mucous membranes Cardiovascular: Regular rate Respiratory: Respirations even and unlabored. No increased work of breathing. Talking in full sentences Abdomen/GI: Soft, non-tender. No distention Skin: Warm, dry with normal turgor. Normal color. MS/ Extremity: Pulses equal, no cyanosis. Neurovascular intact. Full, normal range of motion. Neuro: Awake and alert, GCS 15, oriented to person, place, time, and situation. Vital Signs: 19:13 BP 102 / 72; Pulse 82; Resp 18; Temp 98.1; Pulse Ox 100% ; Weight 84.82 kg; Height 5 vc1 ft. 0 in. ; 19:45 BP 106 / 64; Pulse 76; Resp 16; Pulse Ox 100% on R/A; al5 20:30 BP 108 / 83; Pulse 71; Resp 16; Pulse Ox 100% on R/A; al5 19:13 Body Mass Index 36.52 (84.82 kg, 152.4 cm) vc1 MDM: 19:14 Medical Screening Exam initiated tacho 20:22 Differential diagnosis: Hyperemesis gravidarum, dehydration, abnormal electrolytes. kb Data reviewed: vital signs, nurses notes. Counseling: I had a detailed discussion with the patient and/or guardian regarding the historical points, exam findings, and any diagnostic results supporting the discharge/admit diagnosis, lab results, the need for outpatient follow up, an OB/Gyne specialist, to return to the emergency department if symptoms worsen or persist or if there are any questions or concerns that arise at home. 20:37 Test considered but Not performed: Ultrasound US considered but pt has no abd pain or kb vaginal bleeding. ED course: pt tolerating po intake. 07/22 19:12 Order name: CBC with Diff; Complete Time: 20:02 kb 07/22 19:12 Order name: BMP; Complete Time: 20:02 kb 07/22 19:13 Order name: UA Rfx Samuel Cult if indicated; Complete Time: 20:02 kb 07/22 19:58 Order name: Urine Culture EDMS 07/22 19:12 Order name: IV Start; Complete Time: 19:32 kb 07/22 20:02 Order name: PO challenge; Complete Time: 20:28 kb Administered Medications: 19:47 Drug: NS 0.9% IV 1000 ml IV at 1000 ml once; to be given as a bolus over 60 minutes vc1 Route: IV; Rate: 1000 ml; Site: left antecubital; 20:44 Follow up: IV Status: Completed infusion; IV Intake: 1000ml al5 19:47 Drug: Ondansetron IVP 4 mg IVP once; over 2 minutes Route: IVP; Site: left antecubital; vc1 20:44 Follow up: Response: No adverse reaction; Nausea is decreased al5 20:28 Drug: Potassium Chloride PO 40 mEq PO once Route: PO; al5 20:44 Follow up: Response: No adverse reaction al5 Disposition: 21:44 Co-signature as Attending Physician, Toño Cardenas MD I reviewed the patient's care rn provided by the Advanced Practice Provider and agree with the diagnosis and treatment plan. Disposition Summary: 07/22/25 20:36 Discharge Ordered Notes: Location: Home(07/22/25 20:36) kb Condition: Stable(07/22/25 20:36) kb Diagnosis - Vomiting of , unspecified(07/22/25 20:36) kb Followup: kb - With: Emergency Department - When: As needed - Reason: Worsening of condition Followup: kb - With: Private Physician - When: 2 - 3 days - Reason: Recheck today's complaints, Continuance of care, Re-evaluation by your physician Forms: - Medication Reconciliation Form kb - Antibiotic Education kb - Prescription Opioid Use kb - Patient Portal Instructions kb - Leadership Thank You Letter kb Signatures: Dispatcher [employer] EDRachel Parker, DIAGNOSTICS SALES DEVELOPER-C DIAGNOSTICS SALES DEVELOPER-Ckb Keaton Alvarez MD MD cha Nieto, Roman, MD MD rn Calcote, Vanessa, RN RN vc1 Paulette Montano RN RN al5 Corrections: (The following items were deleted from the chart) 20:36 20:35 Home rn kb 20:36 20:35 Stable rn kb 20:36 20:35 Vomiting of , unspecified rn kb
--- NOTE | 2025-07-22 21:07 | ER ---
Nurse's Notes [facility] [place], [place] Name: Jacky Lopez Age: 25 yrs Sex: Female : 2000 Arrival Date: 07/22/2025 Time: 18:04 Bed 17 Private MD: Diagnosis: Vomiting of , unspecified Presentation: 07/22 19:13 Chief complaint: Patient states: Been vomiting for 3 days, can not keep anything down. vc1 10 weeks 1 day . Coronavirus screen: Client denies travel out of the [place] in the last 14 days. At this time, the client does not indicate any symptoms associated with coronavirus-19. Ebola Screen: Patient negative for fever greater than or equal to 101.5 degrees Fahrenheit, and additional compatible Ebola Virus Disease symptoms Patient denies exposure to infectious person. Patient denies travel to an Ebola-affected area in the 21 days before illness onset. No symptoms or risks identified at this time. Initial Sepsis Screen: Does the patient meet any 2 criteria? No. Patient's initial sepsis screen is negative. Does the patient have a suspected source of infection? No. Patient's initial sepsis screen is negative. Risk Assessment: Do you want to hurt yourself or someone else? Patient reports no desire to harm self or others. Onset of symptoms was July 19, 2025. Care prior to arrival: Medication(s) given: Phenergan, suppository. 19:13 Method Of Arrival: Ambulatory vc1 19:13 Acuity: GENE 3 vc1 Triage Assessment: 19:13 General: Appears in no apparent distress. uncomfortable, obese, well groomed, Behavior vc1 is calm, cooperative, appropriate for age. Pain: Denies pain. EENT: No deficits noted. No signs and/or symptoms were reported regarding the EENT system. Neuro: Level of Consciousness is awake, alert, obeys commands, Oriented to person, place, time, situation, Appropriate for age. Cardiovascular: Capillary refill < 3 seconds Patient's skin is warm and dry. Respiratory: Airway is patent Respiratory effort is even, unlabored, Respiratory pattern is regular, symmetrical. GI: Abdomen is round non-distended, Pt is actively vomiting dry heaving over trash can, nothing coming out Reports intolerance of fluids, intolerance of food, nausea, vomiting. : No deficits noted. No signs and/or symptoms were reported regarding the genitourinary system. Derm: Skin is intact, is healthy with good turgor, Skin is dry, Skin is normal, Skin temperature is warm. Musculoskeletal: Circulation, motion, and sensation intact. Range of motion: intact in all extremities. JD EDWARDS DEVELOPER: 19:13 2, Full Term 0, Premature 0, 0, Living 0, LMP 04/22/2025, vc1 Verified, EDC 01/27/2026, Gestational age from LMP: 13 weeks 1 day, Pt states 10 weeks 1 day Historical: - Allergies: 19:13 lamotrigine; vc1 19:13 Latex; vc1 - Home Meds: 19:13 None [Active]; vc1 - PMHx: 19:13 anemic (Unknown); Anxiety; BRADYCARDIA (Unknown); Depression; vc1 - PSHx: 19:13 Appendectomy; vc1 - Immunization history:: Client reports receiving the 2nd dose of the Covid vaccine, Flu vaccine is not up to date. - Infectious Disease History:: Denies. - Social history:: Smoking status: Patient/guardian denies using tobacco, Stopped _ months ago 5. Screenin:13 [facility] ED Fall Risk Assessment (Adult) History of falling in the last 3 months, vc1 including since admission No falls in past 3 months (0 pts) Confusion or Disorientation No (0 pts) Intoxicated or Sedated No (0 pts) Impaired Gait No (0 pts) Mobility Assist Device Used No (0 pt) Altered Elimination Yes (1 pt) Score/Fall Risk Level 0 - 2 = Low Risk Oriented to surroundings, Maintained a safe environment, Educated pt \T\ family on fall prevention, incl call for assistance when getting out of bed, Hourly rounding (assess needs \T\ fall precautionary measures) done. Abuse screen: Denies threats or abuse. Nutritional screening: Has had N/V for 3 or more days Intervention for positive screen: ED Physician notified. Tuberculosis screening: No symptoms or risk factors identified. Assessment: 20:28 General: Appears in no apparent distress. comfortable, Behavior is calm, cooperative. al5 Pain: Denies pain. Neuro: Level of Consciousness is awake, alert, obeys commands, Oriented to person, place, time, situation. Cardiovascular: Patient's skin is warm and dry. Respiratory: Airway is patent Respiratory effort is even, unlabored, Respiratory pattern is regular, symmetrical. GI: Patient currently denies nausea, vomiting. : No signs and/or symptoms were reported regarding the genitourinary system. EENT: No signs and/or symptoms were reported regarding the EENT system. Derm: Skin is intact, is healthy with good turgor, Skin is pink, warm \T\ dry. normal. Musculoskeletal: Circulation, motion, and sensation intact. Range of motion: intact in all extremities. 20:44 Reassessment: Patient appears in no apparent distress at this time. No changes from al5 previously documented assessment. Patient and/or family updated on plan of care and expected duration. Pain level reassessed. Patient is alert, oriented x 3, equal unlabored respirations, skin warm/dry/pink. Vital Signs: 19:13 BP 102 / 72; Pulse 82; Resp 18; Temp 98.1; Pulse Ox 100% ; Weight 84.82 kg; Height 5 vc1 ft. 0 in. ; 19:45 BP 106 / 64; Pulse 76; Resp 16; Pulse Ox 100% on R/A; al5 20:30 BP 108 / 83; Pulse 71; Resp 16; Pulse Ox 100% on R/A; al5 19:13 Body Mass Index 36.52 (84.82 kg, 152.4 cm) vc1 ED Course: 19:08 Patient arrived in ED. cj3 19:08 Rachel Kitchen FNP-C [facility]. kb 19:08 Toño Cardenas MD is Attending Physician. kb 19:13 Patient has correct armband on for positive identification. Bed in low position. Call vc1 light in reach. Provided Education on: Plan of care. Pulse ox on. NIBP on. 19:13 Arm band placed on left wrist. vc1 19:25 Inserted saline lock: 20 gauge in left antecubital area, using aseptic technique. Blood vc1 collected. Flushed with 10 mL NS. 19:25 Initial lab(s) drawn, by laborer wharf, sent to lab. Urine collected: clean catch specimen, vc1 clear. 19:48 UA Rfx Samuel Cult if indicated Sent. vk 19:58 Triage completed. vc1 20:23 Paulette Montano RN is Primary Nurse. al5 20:23 No provider procedures requiring assistance completed. al5 20:44 IV discontinued, intact, bleeding controlled, No redness/swelling at site. Pressure al5 dressing applied. Administered Medications: 19:47 Drug: NS 0.9% IV 1000 ml IV at 1000 ml once; to be given as a bolus over 60 minutes vc1 Route: IV; Rate: 1000 ml; Site: left antecubital; 20:44 Follow up: IV Status: Completed infusion; IV Intake: 1000ml al5 19:47 Drug: Ondansetron IVP 4 mg IVP once; over 2 minutes Route: IVP; Site: left antecubital; vc1 20:44 Follow up: Response: No adverse reaction; Nausea is decreased al5 20:28 Drug: Potassium Chloride PO 40 mEq PO once Route: PO; al5 20:44 Follow up: Response: No adverse reaction al5 Medication: 20:23 VIS not applicable for this client. al5 Intake: 20:44 IV: 1000ml; Total: 1000ml. al5 Outcome: 20:35 Discharge ordered by . rn 20:36 Discharge ordered by . kb 20:44 Discharged to home ambulatory, with family, with significant other, al5 20:44 Condition: good 20:44 Discharge instructions given to patient, Instructed on discharge instructions, follow up and referral plans. Demonstrated understanding of instructions, follow-up care, 20:45 Patient left the ED. al5 Signatures: Rachel Kitchen, WEED CONTROLLER-C WEED CONTROLLER-Ckb Toño Cardenas MD MD rn Calcote, Vanessa, RN RN vc1 Alisha Simons Amanda, RN RN al5 [place] 3
[2025-07-22 23:19] VITALS: TEMP 98.1; O2SAT 100
[2025-07-22 23:30] VITALS: BP 108/83
== END 2025-07-22 20:45 | disposition home or self-care (01) ==
LOC: ER 18:04
DX: O21.9 Vomiting of pregnancy, unspecified (principal); F41.9 Anxiety disorder, unspecified; F32.A Depression, unspecified; Z3A.13 13 weeks gestation of pregnancy
CPT/HCPCS: 96361; 87088; 85025; 81001; 87086; 80048; 36415; 96374; 99284; J2405; J7030